=== PATIENT | female | born 1950 | race Caucasian/White ===

== ENCOUNTER 2020-01-16 12:25 | Outpatient (CLI) | payer MEDICARE, SELFPAY ==
--- NOTE | 2020-01-16 12:31 | ECHO_ITS ---
Patient Info Name: Lian Marquez Age: 69 years : 1950 Gender: Female Ht: 63 in Wt: 123 lbs BSA: 1.58 m2 HR: 77 bpm BP: 135 / 48 mmHg Heart Rhythm: Sinus Rhythm Technical Quality: Excellent Exam Date: 01/16/2020 1:33 PM Exam Location: [facility] Patient Status: Outpatient Admit Date: 01/16/2020 Staff Ordering Physician: Chioma Noel NP Log Sawyer: Nelly Coburn RDCS Attending Provider: Chioma Noel NP Referring Physician: Bert SINGH; Exam Type: CA echo doppler color flow Study Info Indications R01.1 - Cardiac murmur, unspecified Complete two-dimensional, color flow and Doppler transthoracic echocardiogram is performed. Strain analysis performed. History/Risk Factors Hypertension: No Dyslipidemia: No Congenital Heart Disease (CHD): No Peripheral Arterial Disease (PAD): No Myocardial Infarction (MO): No Chronic Lung Disease: No Obesity: No Renal Disease: No Coronary Artery Disease (CAD) No Congestive Heart Failure (CHF): No Cardiomyopathy/LV Systolic Dysfunction: No Diabetes Mellitus: No COPD: On Meds Tobacco Use: Former Cerebrovascular Disease: No Deep Vein Thrombosis (DVT): None Dialysis: None Frailty Scale (CSHA): 2: Well Cardiac Arrest: No Summary 1. Complete two-dimensional, color flow and Doppler transthoracic echocardiogram is performed. 2. Left ventricular chamber dimension is normal. 3. Left ventricular systolic function is normal, estimated at 65-70%. 4. The left ventricular diastolic function is normal. 5. E/e' 8 is minimally elevated. 6. Global longitudinal strain is normal at -21.2%. 7. Left atrial chamber dimension is mildly enlarged. 8. The mitral valve has moderate posterior prolapse. 9. There is moderate mitral valve regurgitation that is eccentric and anteriorly directed jet. Eccentric jet can underestimate severity of regurgitation. 10. There is trace tricuspid valve regurgitation. 11. No pulmonary hypertension, estimated pulmonary arterial systolic pressure is 36 mmHg. Left Ventricle E/e' 8 is minimally elevated. Global longitudinal strain is normal at -21.2%. Left ventricular chamber dimension is normal. Left ventricular systolic function is normal, estimated at 65-70%. The left ventricular diastolic function is normal. Right Ventricle Right ventricular chamber dimension is normal. Right ventricular systolic function is normal. Left Atria Left atrial chamber dimension is mildly enlarged. Right Atria Right atrial chamber dimension is normal. Aortic Valve The aortic valve is trileaflet. There is no aortic valve stenosis. There is no aortic valve regurgitation. Pulmonic Valve There is no pulmonic regurgitation. Mitral Valve The mitral valve has moderate posterior prolapse. There is moderate mitral valve regurgitation that is eccentric and anteriorly directed jet. Eccentric jet can underestimate severity of regurgitation. There is no mitral valve stenosis. Tricuspid Valve There is trace tricuspid valve regurgitation. No pulmonary hypertension, estimated pulmonary arterial systolic pressure is 36 mmHg. Pericardium/Pleural There is no pericardial effusion. Inferior Vena Cava Normal inferior vena cava with >50% collapse upon inspiration consistent with normal right atrial pressure, 5 mmHg. Aorta The aortic root size at the sinus of Valsalva is normal. Lef
== END 2020-01-16 12:26 | disposition home or self-care (01) ==
LOC: CHSIMG 12:28
PROVIDERS: PCP Nurse Practitioner Family; Visit Provider Nurse Practitioner Family
DX: R01.1 Cardiac murmur, unspecified (principal); I34.1 Nonrheumatic mitral (valve) prolapse; I34.0 Nonrheumatic mitral (valve) insufficiency
CPT/HCPCS: 93306

== ENCOUNTER 2021-01-09 11:46 | Outpatient (CLI) | payer MEDICARE, SELFPAY ==
--- NOTE | ~2021-01-09 | MM_ITS ---
EXAMINATION: MM screening ramón BI w abdulkadir HISTORY: Screening mammogram TECHNIQUE: Craniocaudal and mediolateral oblique 3-D tomosynthesis images were obtained and synthetic 2-D images were generated. CAD analysis was submitted and interpreted. COMPARISON: 12/04/2018, 02/02/2017, 07/17/2014 bilateral screening mammogram examinations BREAST PARENCHYMAL COMPOSITION: The breasts are heterogeneously dense, which may obscure small masses . FINDINGS: There is no evidence of suspicious mass, calcification, or architectural distortion to sugg est malignancy in either breast. There has been no suspicious interval change. IMPRESSION: 1. No mammographic evidence of malignancy. 2. Recommend routine screening mammography in one year. BI-RADS Category 1: Negative Reviewed, dictated and finalized at location A.
== END 2021-01-09 11:47 | disposition home or self-care (01) ==
LOC: CHSIMG 11:48
PROVIDERS: PCP Nurse Practitioner Family; Visit Provider Nurse Practitioner Family
DX: Z12.31 Encounter for screening mammogram for malignant neoplasm of breast (principal)
CPT/HCPCS: 77063; 77067

== ENCOUNTER 2021-04-20 08:42 | Outpatient (CLI) | payer MEDICARE, SELFPAY ==
[2021-04-20 10:50] LABS: Alanine Aminotransferase 18 U/L (14-59); Albumin Level 4.1 g/dL (3.4-5.0); Alkaline Phosphatase 64 U/L (46-116); Anion Gap 9 mmol/L (8-16); Aspartate Amino Transferase 13 U/L (15-37); Bilirubin,Total 0.8 mg/dL (0.00-1.00); Blood Urea Nitrogen 11 mg/dL (7-18); Calcium 8.8 mg/dL (8.5-10.1); Carbon Dioxide 30 mmol/L (21-32); Chloride 101 mmol/L (98-108); Cholesterol 237 mg/dL (0-200); Estimated Glomerular Filt Rate > 60; Glucose 91 mg/dL (70-99); HDL Direct 115 mg/dL (40-60); LDL Cholesterol Calculated 111 mg/dL (<130); Osmolality Calculated 289 mOsm/kg (285-295); Potassium 3.8 mmol/L (3.5-5.1); Sodium 140 mmol/L (136-145); Triglycerides 57 mg/dL (0-150)
== END 2021-04-20 08:43 | disposition home or self-care (01) ==
LOC: CHSLAB 08:48
PROVIDERS: PCP Nurse Practitioner Family; Visit Provider Internal Medicine Cardiovascular Disease
DX: I34.1 Nonrheumatic mitral (valve) prolapse (principal); I10 Essential (primary) hypertension
CPT/HCPCS: 36415; 80053; 80061

== ENCOUNTER 2022-01-25 14:18 | Outpatient (CLI) | payer MEDICARE, SELFPAY ==
--- NOTE | 2022-01-25 14:26 | ECHO_ITS ---
Patient Info Name: Lian Marquez Age: 71 years : 1950 Gender: Female Ht: 63 in Wt: 123 lbs BSA: 1.58 m2 HR: 79 bpm BP: 154 / 76 mmHg Heart Rhythm: Sinus Rhythm Technical Quality: Fair Exam Date: 01/25/2022 3:14 PM Exam Location: [facility] Patient Status: Outpatient Admit Date: 01/25/2022 Staff Ordering Physician: Tk Arnold DO Ingredient Mixer: Isabela Dewey RDCS Attending Provider: Tk Arnold DO Referring Physician: Clayton SANTOYO; Exam Type: CA echo doppler color flow Study Info Indications - NONRHEUMATIC MITRAL (VALVE) PROLAPSE Complete two-dimensional, color flow and Doppler transthoracic echocardiogram is performed. History/Risk Factors Hypertension: No Dyslipidemia: No Congenital Heart Disease (CHD): No Peripheral Arterial Disease (PAD): No Myocardial Infarction (AL): No Chronic Lung Disease: No Obesity: No Renal Disease: No Coronary Artery Disease (CAD) No Congestive Heart Failure (CHF): No Cardiomyopathy/LV Systolic Dysfunction: No Diabetes Mellitus: No COPD: On Meds Tobacco Use: Former Cerebrovascular Disease: No Deep Vein Thrombosis (DVT): None Dialysis: None Frailty Scale (CSHA): 2: Well Cardiac Arrest: No Summary 1. Complete two-dimensional, color flow and Doppler transthoracic echocardiogram is performed. 2. Left ventricular chamber dimension is normal. 3. Left ventricular systolic function is normal, estimated at 65-70%. 4. The left ventricular diastolic function is grade III diastolic dysfunction. 5. E/e' 52 is significantly elevated. 6. Left atrial chamber dimension is severely enlarged. 7. Right atrial chamber dimension is mildly enlarged. 8. There is mild aortic valve sclerosis. 9. There is trace aortic valve regurgitation. 10. The mitral valve has moderately thickened leaflets, moderately calcified annulus and severe posterior prolapse. 11. There is severe eccentric mitral valve regurgitation. 12. There is moderate tricuspid valve regurgitation. 13. Severe pulmonary hypertension, estimated pulmonary arterial systolic pressure is 66 mmHg. 14. Dilated inferior vena cava with >50% collapse upon inspiration consistent with elevated right atrial pressure, 10 mmHg. Left Ventricle E/e' 52 is significantly elevated. Left ventricular chamber dimension is normal. Left ventricular systolic function is normal, estimated at 65-70%. The left ventricular diastolic function is grade III diastolic dysfunction. Right Ventricle Right ventricular systolic function is normal and with normal TAPSE 1.7 cm. Right ventricular chamber dimension is normal. Left Atria Left atrial chamber dimension is severely enlarged. Right Atria Right atrial chamber dimension is mildly enlarged. Aortic Valve The aortic valve is trileaflet. There is mild aortic valve sclerosis. There is no aortic valve stenosis. There is trace aortic valve regurgitation. Pulmonic Valve There is no pulmonic regurgitation. Mitral Valve The mitral valve has moderately thickened leaflets, moderately calcified annulus and severe posterior prolapse. There is no mitral valve stenosis. There is severe eccentric mitral valve regurgitation. Tricuspid Valve There is moderate tricuspid valve regurgitation. Severe pulmonary hypertension, estimated pulmonary arterial systolic pressure is 66 mmHg. Pericardium/Pleural There is no pericardial effusion. Inferior Vena Cava
== END 2022-01-25 14:19 | disposition home or self-care (01) ==
LOC: CHSIMG 14:21
PROVIDERS: PCP Nurse Practitioner Family; Visit Provider Internal Medicine Cardiovascular Disease
DX: I34.1 Nonrheumatic mitral (valve) prolapse (principal)
CPT/HCPCS: 93306

== ENCOUNTER 2022-09-02 23:54 | Emergency (ER) | payer MEDICARE, SELFPAY ==
--- NOTE | ~2022-09-02 | XR_ITS ---
Portable chest x-ray Comparison: 05/29/2015 Clinical History: SVT Findings: There is minimal peripheral haziness in the lungs. Probable minimal pleural effusions. Ca rdiomediastinal silhouette is stable. Stable extensive thoracic spinal fixation hardware. Stable marisabel droid lesion at the proximal left humerus, likely large enchondroma. Impression: Probable mild pulmonary edema with minimal pleural effusions. Correlate clinically for infection. 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 Stable spinal fixation hardware. Reviewed, dictated and finalized at location . Impression: Probable mild pulmonary edema with minimal pleural effusions. Correlate clinica lly for infection. 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 Stable spinal fixation hardware.
--- NOTE | ~2022-09-02 | CT_ITS ---
Clinical Indication: Shortness of breath CT Scan of the Chest with Contrast: Technique: Contiguous sections were acquired throughout the chest after intravenous administration of 100 cc of Omnipaque 350. Dose reduction technique was used on this scan by utilizing automated expos ure control and iterative reconstruction technique. The dose-length product (DLP) was 186.45 mGy-cm. Findings: There is streak artifact related to extensive thoracic spine fixation hardware. There is no evidence of any significant mediastinal, hilar or axillary lymphadenopathy. There is no f illing defect in the pulmonary arterial tree to suggest pulmonary embolus. There is no evidence of ao rtic dissection or aneurysm. There is no evidence of pleural or pericardial effusion. There are several scattered small, subcentimeter nodular opacities in the lungs (for example right up per lobe image 41, left lower lobe image 70), with additional scattered peripheral areas of irregular consolidation. There is suggestion of minimal patchy groundglass opacity throughout the lungs. There is probable atelectasis at the posterior left lung base. Images through the upper abdomen reveal no abnormalities. Compression fracture of T7 present. Impression: No evidence of pulmonary embolus, aortic dissection, or aortic aneurysm. Scattered peripheral areas of patchy consolidation and subcentimeter nodularity, as noted above. Find ings suggest infectious/inflammatory process. Small neoplastic nodules cannot be completely excluded. Consider follow-up exam after interval therapy. Minimal patchy groundglass opacity could reflect minimal superimposed pulmonary edema, bronchiolitis, asthma, hypersensitivity pneumonitis. Correlate clinically. T7 compression fracture with extensive thoracic spine fixation hardware. Reviewed, dictated and finalized at [facility]. Impression: No evidence of pulmonary embolus, aortic dissection, or aortic aneurysm. Scattered peripheral areas of patchy consolidation and subcentimeter nodularity , as noted above. Findings suggest infectious/inflammatory process. Small neopl astic nodules cannot be completely excluded. Consider follow-up exam after inte rval therapy. Minimal patchy groundglass opacity could reflect minimal superimposed pulmonary edema, bronchiolitis, asthma, hypersensitivity pneumonitis. Correlate clinical ly. T7 compression fracture with extensive thoracic spine fixation hardware.
[2022-09-02 23:54] VITALS: BP 85/59; PULSE 205; RESP 28; TEMP 36.8; O2SAT 99
[2022-09-03] VITALS (32 sets, daily range): BP systolic 87–111; BP diastolic 33–74; PULSE 87–152; RESP 16–35; TEMP 37; O2SAT 94–100
--- NOTE | 2022-09-03 00:01 | ECG_ITS ---
Measurements Intervals [place] Rate: 95 P: 39 FL: 146 QRS: 0 QRSD: 89 T: 30 QT: 351 QTc: 442 Interpretive Statements SINUS RHYTHM WITH OCCASIONAL SUPRAVENTRICULAR PREMATURE COMPLEXES NONSPECIFIC ST AND T CHANGES ABNORMAL ECG COMPARED TO ECG 09/03/2022 00:01:23 SINUS RHYTHM NOW REPLACES SVT Electronically Signed On 09-03-2022 8:03:28 CDT by Roe White M.D.
[2022-09-03] MEDS: SODIUM CHLORIDE 0.9% IV 500 ML 999 ML IV CONT (00:04)
[2022-09-03] MEDS: MIDAZOLAM HCL (*CRX) 2 MG/2 ML VIAL 1 MG IV PUSH ×2 (00:05→00:09)
--- NOTE | 2022-09-03 00:15 | PC.NURSE ---
Pt cardioverted x 2 with 50 J pt tolerated well. Pt now in NSR with occasional ectopy noted. Pt reports feeling much better. Skin now cool, dry, and pink. Repeat ECG obtained. Portable Chest X-ray completed. Repeat labs drawn and sent.
[2022-09-03 00:19] LABS: INR 1.1; Partial Thromboplastin Time 23.1 SEC (23.90-30.70); Prothrombin Time 11.5 Seconds (9.50-12.10)
[2022-09-03 00:26] LABS: Basophils Absolute Auto 0.02 K/mm3 (0.00-0.10); Basophils Percent Auto 0.2 % (0.0-1.0); Eosinophils Absolute Auto 0.27 K/mm3 (0.02-0.50); Eosinophils Percent Auto 2.2 % (1.0-6.0); Hematocrit 28.8 % (35.0-42.0); Hemoglobin 8.2 g/dL (11.7-13.8); Immature Granulocyte Absolute 0.13 K/mm3 (0.00-0.00); Immature Granulocyte Percent A 1.1 % (0.0-0.0); Lymphocytes Absolute Auto 0.82 K/mm3 (1.10-4.50); Lymphocytes Percent Auto 6.8 % (18.0-42.0); Mean Corpuscular HGB Conc 28.5 g/dL (32.0-36.0); Mean Corpuscular Hemoglobin 31.4 pg (27.0-31.0); Mean Corpuscular Volume 110.3 fL (78.0-102.0); Mean Platelet Volume 9.1 fl (9.2-11.8); Monocytes Absolute Auto 0.81 K/mm3 (0.10-0.90); Monocytes Percent Auto 6.7 % (2.0-11.0); Platelet Count Result 347 K/mm3 (150-420); Red Blood Count 2.61 M/mm3 (4.20-5.40); Red Cell Distribution Width 16.6 % (11.6-14.4)
[2022-09-03 00:26] LABS: D Dimer 2.52 mg/L (0.19-0.50)
--- NOTE | 2022-09-03 00:29 | ECG_ITS ---
Measurements Intervals [place] Rate: 204 P: TX: 0 QRS: -17 QRSD: 77 T: 171 QT: 213 QTc: 393 Interpretive Statements SUPRAVENTRICULAR TACHYCARDIA NONSPECIFIC ST & T-WAVE ABNORMALITY ABNORMAL ECG CRITICAL TEST RESULT NO PREVIOUS ECG AVAILABLE FOR COMPARISON Electronically Signed On 09-03-2022 8:02:48 CDT by Roe White M.D.
[2022-09-03 00:30] LABS: Alanine Aminotransferase 56 U/L (14-59); Albumin Level 3.1 g/dL (3.4-5.0); Alkaline Phosphatase 150 U/L (46-116); Anion Gap 7 mmol/L (8-16); Aspartate Amino Transferase 108 U/L (15-37); Bilirubin,Total 0.7 mg/dL (0.00-1.00); Blood Urea Nitrogen 20 mg/dL (7-18); Calcium 8.3 mg/dL (8.5-10.1); Carbon Dioxide 30 mmol/L (21-32); Chloride 103 mmol/L (98-108); Estimated Glomerular Filt Rate > 60; Glucose 159 mg/dL (70-99); Lipase 70 U/L (16-77); NT Pro B Type Natriuretic Pept 2124 pg/mL (0-125); Osmolality Calculated 295 mOsm/kg (285-295); Potassium 4.2 mmol/L (3.5-5.1); Sodium 140 mmol/L (136-145)
--- NOTE | 2022-09-03 00:48 | ED.SOB ---
HPI - SOB/Dyspnea General Chief Complaint: Arrhythmia/Palpitations Stated Complaint: Cardio Converted Time Seen by Provider: 09/02/22 23:56 Source: patient and EMS Mode of arrival: EMS Limitations: no limitations History of Present Illness HPI Narrative: this is a 72-year-old female that presents via EMS with some tachycardia heart rate over 200 with shortness of breath hypotensive, patient denies having any chest pain initially blood pressure was 88 systolic with a heart rate of 206. Denied any chest pain did have some shortness of breath with no nausea vomiting no abdominal pain no dysuria no fever chills. Patient recently had mitral valve replacement surgery 2 weeks ago is currently on Eliquis, also has a history of hypertension and is on metoprolol and is on Lasix. MD elicited complaint: shortness of breath Onset (ago): hour(s) Context: recent illness Timing: constant Severity: severe Exacerbating factors: exertion Related Data Home Medications Medication Instructions Recorded Confirmed apixaban 5 mg tablet 5 mg PO BID 08/31/22 09/03/22 aspirin 81 mg tablet,delayed 81 mg PO DAILY 08/31/22 09/03/22 release (Adult Aspirin Regimen) furosemide 40 mg tablet 40 mg PO QAM 08/31/22 09/03/22 metoprolol succinate 25 mg 12.5 mg PO DAILY 08/31/22 09/03/22 tablet,extended release 24 hr potassium chloride 20 mEq 20 meq PO DAILY 08/31/22 09/03/22 tablet,extended release Allergies Allergy/AdvReac Type Severity Reaction Status Date / Time No Known Allergies Allergy Verified 09/01/22 08:36 Review of Systems Review of Systems: All systems reviewed & are unremarkable except as noted in HPI and below PMFSH Past Medical History Medical History COPD (chronic obstructive pulmonary disease) Insomnia Surgical History Surgical History History of back surgery 1999 Hx of hysterectomy 1985 S/P mitral valve repair 08/17/[address] Velez at [place] Social History Social History Smoking packs per day: 0 Smoking cigarettes per day: 0.0 Years smoked: 40 Smoking pack-years: 0.00 Smoking status: Former smoker Tobacco type: cigarettes Smoking end date: 12/12/18 Lack of Transportation: No Lack of Food: Never True Current Housing: I Have Housing Concerned About Future Housing: No Difficulty Paying Gas/Electric Bills: No Difficulty Paying for Meds: No Currently Unemployed: No Education: Associate Degree Difficulty w/ Childcare or Family Care: No Exam Const: General: ill appearing Nutritional Appearance: thin Orientation/consciousness: patient oriented x3 Limitations: no limitations HENMT: Head: normal to inspection Eyes: Conjunctivae: conjunctivae normal Pupils: Equal, round and reactive pupils present EOM: EOMs intact bilaterally Neck: Neck: normal visual inspection and no lymphadenopathy Chest: Chest palpation & inspection: normal inspection of the chest Resp: Effort & Inspection: normal respiratory effort Auscultation: clear to auscultation bilaterally Cardio: Rate: tachycardic Rhythm: regular rhythm GI: GI Palp: Yes Soft to palpation Auscultation: normal bowel sounds Skin: General skin exam: normal color Rashes: no rashes Wounds: no wounds Neuro: General: patient oriented x3 and moves all extremities Speech: normal speech Extrem: General: normal to inspection Psych: Mental Status: mental status grossly normal Affect: normal affect Course Course Emergency Course: Patient with a heart rate of over 200 in SVT and unstable, D-dimer is elevated as well as troponins mildly elevated will have a repeat troponin. Patient was prepared for synchronized cardioversion and was given 2mg IV Versed and initially received 50 joules of synchronized cardioversion which decreased heart rate from 205 to 1
[2022-09-03 00:54] LABS: Troponin I 75.1 ng/L (0.00-60.4)
--- NOTE | 2022-09-03 01:08 | PC.NURSE ---
HR now returning to 120-140 irregular narrow complex tachycardia with occasional PVC noted. ERP aware.
[2022-09-03] MEDS: dilTIAZem HCl INJ 25 MG/5 ML VIAL 5 MG IV PUSH (01:20)
[2022-09-03] MEDS: dilTIAZem 100 MG/100 ML 100 MG/100 ML BAG IV CONT (02:04)
--- NOTE | 2022-09-03 02:10 | PC.NURSE ---
Pt resting without complaints at this time. Skin warm, dry, pink. Diltiazem infusing via pump. Awaiting return call from [facility]. Family and pt updated. Call light in reach. Side rails up x2.
--- NOTE | 2022-09-03 02:36 | PC.NURSE ---
SBP 88 ERP aware orders diltiazem drip stopped at this time. Diltiazem infusion stopped as ordered.
--- NOTE | 2022-09-03 02:56 | PC.NURSE ---
Spoke with Juan at [facility] access line. Awaiting bed assignment at this time. Family and pt updated.
--- NOTE | 2022-09-03 03:00 | PC.NURSE ---
[facility] Access line called back at this time with updated vitals BP now 102/79 MAP 80
[2022-09-03 03:01] LABS: Troponin I 184.2 ng/L (0.00-60.4)
--- NOTE | 2022-09-03 03:30 | PC.NURSE ---
ERP aware of SPB 88. Per ERP will start fluids at rate of 250 ml/hr for 500 mL.
[2022-09-03] MEDS: SODIUM CHLORIDE 0.9% IV 500 ML 250 ML IV CONT (03:32)
--- NOTE | 2022-09-03 05:23 | PC.NURSE ---
Report to EFREN Granados at [address] Bed number [phone] room number [id number].
--- NOTE | 2022-09-03 05:42 | PC.NURSE ---
Report to [facility]. Pt converted to NSR rate of 87. [facility] contacted and given ETA and updated that pt converted.
== END 2022-09-03 05:51 | disposition short-term general hospital (02) ==
PROVIDERS: Emergency Provider Emergency Medicine; PCP Family Medicine
DX: I47.1 Supraventricular tachycardia (principal); R06.02 Shortness of breath; J44.9 Chronic obstructive pulmonary disease, unspecified; Z79.01 Long term (current) use of anticoagulants; Z79.82 Long term (current) use of aspirin; Z87.891 Personal history of nicotine dependence
CPT/HCPCS: 36415; 71045; 71275; 80053; 83690; 83880; 84484; 85025; 85380; 85610; 85730; 93005; 96365; 96366; 96375; 96376; 99285; J2250; J7040; Q9967

== ENCOUNTER 2022-09-17 08:51 | Observation (INO) | payer MEDICARE, SELFPAY ==
[2022-09-17] VITALS (26 sets, daily range): BP systolic 103–126; BP diastolic 56–78; PULSE 84–100; RESP 14–25; TEMP 36.2–37; O2SAT 91–100; BMI 20.9
--- NOTE | ~2022-09-17 | XR_ITS ---
EXAMINATION: XR chest 2V DATE: 09/17/2022 09:21 INDICATION: Shortness of breath. TECHNIQUE: Frontal and lateral views of the chest were obtained. COMPARISON: Chest single view 09/03/2022, chest CT 09/03/2022 FINDINGS: There is a diffuse interstitial pattern in the lungs. There are airspace opacities in the m id and lower lung zones. There are small pleural effusions. No pneumothorax. Cardiomegaly is noted. T here are changes of median sternotomy. There are fixation rods in thoracic spine. There is chronic he ight loss of multiple vertebral bodies. IMPRESSION: 1. Worsened diffuse lung disease, likely mild pulmonary edema and superimposed atelectasis/scarring v ersus pneumonia. 2. Small pleural effusions. 3. Cardiomegaly. Reviewed, dictated and finalized at location A. IMPRESSION: 1. Worsened diffuse lung disease, likely mild pulmonary edema and superimposed atelectasis/scarring versus pneumonia. 2. Small pleural effusions. 3. Cardiomegaly.
--- NOTE | 2022-09-17 08:54 | ECG_ITS ---
Measurements Intervals [place] Rate: 96 P: 17 ND: 148 QRS: -3 QRSD: 90 T: 32 QT: 335 QTc: 425 Interpretive Statements SINUS RHYTHM ATRIAL PREMATURE COMPLEX NONSPECIFIC T-WAVE ABNORMALITY- DIFFUSE LEADS BASELINE WANDER- I, II, AVR, AVL, AVF, V3-V6 BORDERLINE ECG COMPARED TO ECG 09/03/2022 00:15:58 NO SIGNIFICANT CHANGES Electronically Signed On 09-17-2022 9:34:37 CDT by Tk Arnold D.O.
--- NOTE | 2022-09-17 09:04 | ED.SOB ---
HPI - SOB/Dyspnea General Chief Complaint: Shortness of Breath/Dyspnea Stated Complaint: shortness of breath/s/p mitral valve repair Time Seen by Provider: 09/17/22 09:04 Source: patient and RN notes reviewed Mode of arrival: ambulatory Limitations: no limitations History of Present Illness MD elicited complaint: shortness of breath Pertinent past history: COPD Onset (ago): day(s) (2) Severity: moderate Exacerbating factors: exertion Relieving factors: nothing Known history of: COPD Associated symptoms: denies other symptoms Treatment prior to arrival: none Related Data Home Medications Medication Instructions Recorded Confirmed apixaban 5 mg tablet 5 mg PO BID 08/31/22 09/17/22 aspirin 81 mg tablet,delayed 81 mg PO DAILY 08/31/22 09/17/22 release (Adult Aspirin Regimen) furosemide 40 mg tablet 40 mg PO QAM 08/31/22 09/17/22 metoprolol succinate 25 mg 12.5 mg PO DAILY 08/31/22 09/17/22 tablet,extended release 24 hr potassium chloride 20 mEq 20 meq PO DAILY 08/31/22 09/17/22 tablet,extended release Allergies Allergy/AdvReac Type Severity Reaction Status Date / Time No Known Allergies Allergy Verified 09/01/22 08:36 Review of Systems Review of Systems: All systems reviewed & are unremarkable except as noted in HPI and below Constitutional: Constitutional: Denies chills and Denies fever(s) Cardiovascular: Cardiovascular: Denies chest pain and Denies rapid heart rate Respiratory: Respiratory: Reports as per HPI Gastrointestinal: Gastrointestinal: Denies nausea and Denies vomiting [facility] Past Medical History Medical History COPD (chronic obstructive pulmonary disease) Insomnia Surgical History Surgical History History of back surgery 2000 Hx of hysterectomy 1985 S/P mitral valve repair 08/17/[address] Velez at [place] Social History Social History Smoking packs per day: 0 Smoking cigarettes per day: 0.0 Years smoked: 40 Smoking pack-years: 0.00 Smoking status: Former smoker Tobacco type: cigarettes Smoking end date: 12/12/18 Alcohol intake: unknown Substance use: never Substance use type: does not use Lack of Transportation: No Lack of Food: Never True Current Housing: I Have Housing Concerned About Future Housing: No Difficulty Paying Gas/Electric Bills: No Difficulty Paying for Meds: No Currently Unemployed: No Education: Bachelor's Degree Difficulty w/ Childcare or Family Care: No Spiritual care concerns: No Exam Const: General: healthy appearing, no acute distress and alert Nutritional Appearance: well nourished Orientation/consciousness: patient oriented x3 Limitations: no limitations HENMT: Head: normal to inspection Ears: external ears normal Face/Nose/Sinus: Normal external nose present Face and sinus: normal facial exam Mouth: Yes moist mucous membranes Eyes: Conjunctivae: conjunctivae normal Pupils: Equal, round and reactive pupils present EOM: EOMs intact bilaterally Neck: Neck: normal visual inspection Resp: Effort & Inspection: normal respiratory effort Auscultation: rhonchi throughout Cardio: Rate: regular rate Rhythm: abnormal rhythm with ectopic beats Heart sounds: Murmur heart sound present diastolic holo and III/ GI: GI Palp: Yes Soft to palpation and No Tenderness to palpation present (GI) Auscultation: normal bowel sounds Back/Spine/Pelvis: Cervical Spine: cervical ROM normal Thoracic/Lumbar Spine: thoraco-lumbar ROM normal Skin: General skin exam: normal color Rashes: no rashes Neuro: General: patient oriented x3, moves all extremities, no focal motor deficits and CN's II-XI intact bilaterally Speech: normal speech Gait exam (Neuro): Normal gait present Extrem: General: normal to inspection and no clubbing, cyanosis or edema Psych: Men
[2022-09-17] MEDS: IPRATROPIUM 0.5 MG/ALBUTEROL SULFATE 2.5 MG AMPUL.NEB 3 ML INHALATION (09:22)
[2022-09-17 09:43] LABS: Hematocrit 24.4 % (35.0-42.0); Hemoglobin 7.5 g/dL (11.7-13.8); Mean Corpuscular HGB Conc 30.7 g/dL (32.0-36.0); Mean Corpuscular Hemoglobin 31.6 pg (27.0-31.0); Mean Platelet Volume 9.2 fl (9.2-11.8); Platelet Count Result 270 K/mm3 (150-420); Red Blood Count 2.37 M/mm3 (4.20-5.40); Red Cell Distribution Width 16.9 % (11.6-14.4); White Blood Count 6.5 K/mm3 (4.8-10.8)
[2022-09-17 09:44] LABS: Basophils Absolute Auto 0.03 K/mm3 (0.00-0.10); Basophils Percent Auto 0.5 % (0.0-1.0); Eosinophils Absolute Auto 0.16 K/mm3 (0.02-0.50); Eosinophils Percent Auto 2.4 % (1.0-6.0); Immature Granulocyte Absolute 0.05 K/mm3 (0.00-0.00); Immature Granulocyte Percent A 0.8 % (0.0-0.0); Lymphocytes Percent Auto 12.2 % (18.0-42.0); Monocytes Absolute Auto 0.54 K/mm3 (0.10-0.90); Monocytes Percent Auto 8.3 % (2.0-11.0); Neutrophils Percent Auto 75.8 % (50.0-70.0)
[2022-09-17 09:59] LABS: Partial Thromboplastin Time 27.7 SEC (23.90-30.70); Prothrombin Time 10.9 Seconds (9.50-12.10)
[2022-09-17 10:07] LABS: Alanine Aminotransferase 23 U/L (14-59); Albumin Level 3.4 g/dL (3.4-5.0); Alkaline Phosphatase 90 U/L (46-116); Anion Gap 8 mmol/L (8-16); Aspartate Amino Transferase 56 U/L (15-37); Bilirubin,Total 1.4 mg/dL (0.00-1.00); Blood Urea Nitrogen 17 mg/dL (7-18); CRP 16.9 mg/dL (0.0-0.9); Calcium 8.7 mg/dL (8.5-10.1); Carbon Dioxide 30 mmol/L (21-32); Chloride 105 mmol/L (98-108); Estimated CRCL calculation 69 ml/min; Estimated Glomerular Filt Rate > 60; Glucose 103 mg/dL (70-99); Magnesium 2.2 mg/dL (1.8-2.4); NT Pro B Type Natriuretic Pept 3455 pg/mL (0-125); Osmolality Calculated 297 mOsm/kg (285-295); Potassium 3.6 mmol/L (3.5-5.1); Sodium 143 mmol/L (136-145); Total Protein 6.8 g/dL (6.4-8.2); Troponin I 16.9 ng/L (0.00-60.4)
--- NOTE | 2022-09-17 10:51 | PC.NURSE ---
hospitalist Araceli here and in speaking with pt.
--- NOTE | 2022-09-17 11:20 | PM.IMHP ---
H&P: HPI History of Present Illness Date/Time: 09/17/22 11:20 Chief Complaint: Shortness of breath Narrative: Ms. Bellamy is a 72 year old female who presented to emergency room with complaints of increasing shortness of breath. Patient states she does have chronic shortness of breath, but over the last 3 days she has noticed increasing shortness of breath and at time she has been short of breath rest. Patient states she has been taking all medications at home without any difficulty. Patient states there was a recent decrease in her oral Lasix dose from 40 mg b.i.d. to 40 mg daily. Upon evaluation emergency room patient was noted to have a hemoglobin of 7.5 with hematocrit of 24.4 and elevation in her BNP with a chest x-ray consistent of pulmonary vascular congestion. Patient denies any chest discomfort, orthopnea, or PND. Patient denies any lightheadedness, dizziness, syncopal, or near syncopal episodes. Patient denies any obvious sources of bleeding such as blood in her stool, blood in her urine, or COVID this nose bleeds. Patient did undergo mitral valve repair at [facility] approximately 1 month ago. Postoperatively patient has required transfusion secondary to anemia. Patient had a known history of severe mitral regurgitation and underwent mitral valve repair, surgical pulmonary vein isolation and left atrial appendage ligation on 08/17/2022 at [facility]. Postoperatively patient did have an episode of atrial fibrillation with rapid ventricular response and tachy-linda syndrome. Electrophysiology was consulted and patient was placed on a beta-evelia successfully without needing any type of pacing. On 09/03/2022 patient was taking a shower and she felt like her heart was racing so she called 911 was brought to the emergency room. Patient was noted to be in SVT with heart rate over 200 and blood pressure was low. Patient then had synchronized cardioversion x2 and patient was noted to be in atrial fibrillation with rapid ventricular response and then was given Cardizem bolus and a drip was started and patient had further hypotension. Patient then received a normal saline bolus and she was transported to [facility] for further treatment. At that time patient was noted to have a hemoglobin of 6.7 with hematocrit of 20.9 and she was given 1 unit of packed red blood cells with an appropriate response in her laboratories and her hemoglobin was 9.0 with hematocrit 27.2. At that time was also noted patient had no active sites of bleeding and she was to continue her aspirin and Eliquis. At discharge from [facility] patient was told to take Lasix 40 mg p.o. b.i.d. x1 week and then to decrease it to daily. Patient did decrease her Lasix and since that time she has decrease the dose she has noted increasing shortness of breath. Review of Systems Review of Systems: A 12 point review of systems was completed with patient all pertinent positive and negative per HPI the remainder are unremarkable. FOR[facility]LY [facility] Past Medical History Medical History (Updated 09/17/22 @ 13:45 by Araceli Mckenna APRN) Anemia Atrial fibrillation COPD (chronic obstructive pulmonary disease) Insomnia Mitral regurgitation Surgical History Surgical History History of back surgery 2000 Hx of hysterectomy 1984 S/P mitral valve repair 08/17/[address] Velez at [place] Social History Social History Smoking packs per day: 1 Smoking cigarettes per day: 20.0 Years smoked: 40 Smoking pack-years: 40.00 Smoking status: Former smoker Tobacco type: cigarettes Second hand tobacco smoke exposure: No Smoking end date: 12/12/18 Alcohol intake: unknown Substance use: never Substance use type: does not use Lack of Transportation: No Lack of Food: Never True Current Housing: I Have Housing Concerned
[2022-09-17 11:58] LABS: Folic Acid 16.2 ng/mL (8.6->20); Vitamin B12 338 pg/mL (193-986)
--- NOTE | 2022-09-17 12:56 | PC.NURSE ---
Pt admitted to room 208 from the ED. She is A/O x 3. Steady when walking, good balance, SOB when ambulating. Visiting hours, call system , TV control and nurse call light.
[2022-09-17 14:29] LABS: Immature Reticulocyte Fraction 27.8 % (2.0-16.52); Reticulocyte Hemoglobin Conten 34.1 pg (28.0-35.0); Reticulocyte Percent 9.65 % (0.50-1.50); Reticulocytes Absolute 0.22 M/mm3 (0.02-0.1)
[2022-09-17 14:30] LABS: Lactate Dehydrogenase 985 U/L (81-234)
[2022-09-17] MEDS: SODIUM CHLORIDE 0.9% IV 250 ML 30 ML IV CONT (14:30)
[2022-09-17] MEDS: FUROSEMIDE INJ 40 MG/4 ML VIAL IV PUSH (18:21)
[2022-09-17 18:46] LABS: Hematocrit 28.1 % (35.0-42.0)
--- NOTE | 2022-09-17 19:05 | PC.NURSE ---
GUSTAVO Franklin/Hospitalist notified of post blood transfusion H&H results.
[2022-09-17] MEDS: APIXABAN 2.5 MG TABLET 5 MG BY MOUTH (20:43)
[2022-09-17] MEDS: ALBUTEROL SULFATE (*SP) INHALER 1 PUFF INHALATION (20:44)
[2022-09-18] MEDS: ALBUTEROL SULFATE (*SP) INHALER 1 PUFF INHALATION (04:01)
[2022-09-18 05:24] LABS: Basophils Absolute Auto 0.05 K/mm3 (0.00-0.10); Basophils Percent Auto 0.7 % (0.0-1.0); Eosinophils Percent Auto 6.6 % (1.0-6.0); Hematocrit 26.8 % (35.0-42.0); Hemoglobin 8.7 g/dL (11.7-13.8); Immature Granulocyte Absolute 0.06 K/mm3 (0.00-0.00); Immature Granulocyte Percent A 0.8 % (0.0-0.0); Lymphocytes Absolute Auto 1.12 K/mm3 (1.10-4.50); Lymphocytes Percent Auto 14.7 % (18.0-42.0); Mean Corpuscular HGB Conc 32.5 g/dL (32.0-36.0); Mean Corpuscular Hemoglobin 31.6 pg (27.0-31.0); Mean Corpuscular Volume 97.5 fL (78.0-102.0); Mean Platelet Volume 9.3 fl (9.2-11.8); Monocytes Absolute Auto 0.77 K/mm3 (0.10-0.90); Monocytes Percent Auto 10.1 % (2.0-11.0); Neutrophils Absolute Auto 5.1 K/mm3 (1.7-7.2); Neutrophils Percent Auto 67.1 % (50.0-70.0); Platelet Count Result 276 K/mm3 (150-420); Red Blood Count 2.75 M/mm3 (4.20-5.40); Red Cell Distribution Width 19.1 % (11.6-14.4); White Blood Count 7.6 K/mm3 (4.8-10.8)
[2022-09-18 05:33] LABS: Anion Gap 5 mmol/L (8-16); Blood Urea Nitrogen 16 mg/dL (7-18); Calcium 8.6 mg/dL (8.5-10.1); Carbon Dioxide 32 mmol/L (21-32); Chloride 104 mmol/L (98-108); Estimated CRCL calculation 68 ml/min; Estimated Glomerular Filt Rate > 60; Glucose 113 mg/dL (70-99); Osmolality Calculated 294 mOsm/kg (285-295); Potassium 3.8 mmol/L (3.5-5.1); Sodium 141 mmol/L (136-145)
[2022-09-18 08:00] VITALS: BP 120/70; PULSE 93; RESP 18; TEMP 36.7; O2SAT 92
[2022-09-18] MEDS: POTASSIUM CHLORIDE 10 MEQ ER TABLET PO (08:59)
[2022-09-18] MEDS: FUROSEMIDE INJ 40 MG/4 ML VIAL IV PUSH (08:59)
[2022-09-18] MEDS: APIXABAN 2.5 MG TABLET 5 MG BY MOUTH (09:04)
[2022-09-18] MEDS: ASPIRIN 81 MG ENTERIC TABLET PO (09:04)
[2022-09-18] MEDS: FLUTICASONE/UMECLIDIN/VILANTER 100-62.5-25 MCG ELLIPTA 1 PUFF INHALATION (09:04)
[2022-09-18 09:05] VITALS: PULSE 92
[2022-09-18] MEDS: METOPROLOL SUCCINATE EXT REL 12.5 MG TABCR PO (09:05)
--- NOTE | 2022-09-18 10:01 | PM.DS ---
DS: Admitting Diagnosis Discharge Date 09/18/2022 Admitting Diagnosis Shortness of breath DS: Summary Hospital Course Reason for hospitalization: Anemia Hospital Course: Ms. Bellamy is a 72-year-old female who presented emergency room with complaints of increasing shortness of breath over the last 3 days. Patient states that she also had noticed some pedal edema that had increased over the last day to 2 days. Patient states she had been taking all home medications without any difficulty, but she had recently had a decrease in her Lasix from 40 mg b.i.d. to 40 mg daily. Upon evaluation emergency room patient was noted to have a hemoglobin of 7.5 and a hematocrit of 24.4 which was a decrease from her previous laboratories. Patient was also noted to have an elevated BNP of 3455. It was also noted that patient had recently been seen in the emergency room at this facility for SVT and underwent cardioversion and then was placed on a Cardizem drip and transferred to [facility] secondary to the fact that is where she had a mitral valve repair approximately 1 month ago. During that hospitalization patient was noted to be anemic and did receive 1 unit of packed red blood cells with appropriate response After evaluation in the emergency room on 09/17/22 it was decided the patient be admitted overnight for transfusion of 1 unit of packed red blood cells and diuresis. Above laboratories were noted, but it was also noted patient had a decreased RBC count, an elevated MCV, and an elevated total bilirubin. With the findings of an elevated MCV a B12 and folate were drawn which were within normal limits. After noting that the B12 and folate were within normal limits a consideration for hemolysis was made. Noting the patient had not been anemic prior to her mitral valve repair and at this point she has required 2 transfusions approximately 1 month after surgery, consideration that the patient's mitral valve repair could be causing hemolysis, which is very rare. A reticulocyte count and LDH were performed. Patient's reticulocyte count was elevated and patient's LDH was 985. Unfortunately, a haptoglobin cannot be performed because this is a send out laboratory and would take greater than 4 days to have results. It was also noted that patient's RDW was elevated and patient is indirect bilirubin was 1.0 with a total bilirubin of 1.3. Unfortunately, LDH and reticulocyte counts are not extremely specific to hemolysis it is the start of a workup for hemolysis and patient can follow up with her surgeon for further recommendations and laboratories. Patient does have an appointment to see her cardiovascular surgeon in 1 week. During hospitalization patient did receive 1 unit of packed red blood cells with appropriate response of her hemoglobin and hematocrit. Patient did receive a dose of IV Lasix after receiving her unit of packed red blood cells. Today patient was noted to have fine crackles with improved air movement to bilateral lung diamond and mild, but improved, pedal edema so patient did receive a 2nd dose of IV Lasix this morning. At this point time patient is doing well and is ready for discharge. Did discuss with patient that she should take Lasix 40 mg p.o. in the a.m. and 20 mg p.o. in the evening until she is seen by her surgeon to make any adjustments. Patient is doing well and is in improved stable condition and ready for discharge and she needs to keep her follow-up with her cardiovascular surgeon. Did discuss with patient depth that if she has to have any increasing shortness of breath she either needs to see her primary care provider for laboratories or return to the emergency room. Patient verbalized understanding. Status at Discharge Cognitive/behavioral status at discharge: Patient is improved and stable condition at this time. Time Spent with Patient Time attestation: Total time spent providing and/or coordinating discharge services: 45 minutes
[2022-09-18 10:31] LABS: Alanine Aminotransferase 21 U/L (14-59); Albumin Level 3.2 g/dL (3.4-5.0); Alkaline Phosphatase 80 U/L (46-116); Aspartate Amino Transferase 52 U/L (15-37); Bilirubin Direct 0.3 mg/dL (0-0.2); Bilirubin,Total 1.3 mg/dL (0.00-1.00); Total Protein 6.8 g/dL (6.4-8.2)
--- NOTE | 2022-09-18 10:35 | PC.NURSE ---
Patient' s IV discontinued on anticipation of discharge. Discharge instructions given to patient and her . Both voiced understanding. Patient left unit in w/c accompanied by typewriter aligner. Personal items sent home with patient. Patient left hospital grounds in privately owned vehicle.
--- NOTE | 2022-09-18 10:40 | PC.NURSE ---
H and P and summary faxed to [facility]. Acknowledgement received.
--- NOTE | 2022-09-20 15:32 | PC.NURSE ---
Pt states she received and understood her discharge instructions. Pt also states everyone was wonderful .
== END 2022-09-18 10:35 | disposition home health service (06) ==
LOC: CHSED 10:47 → CHS2ND 12:49
PROVIDERS: Nurse Practitioner Adult Health; Admitting Provider Internal Medicine; Emergency Provider Emergency Medicine; PCP Family Medicine; Visit Provider Internal Medicine
DX: D64.9 Anemia, unspecified (principal); I50.21 Acute systolic (congestive) heart failure; J44.9 Chronic obstructive pulmonary disease, unspecified; Z79.01 Long term (current) use of anticoagulants; Z87.891 Personal history of nicotine dependence; Z79.82 Long term (current) use of aspirin; Z98.890 Other specified postprocedural states; I48.0 Paroxysmal atrial fibrillation
CPT/HCPCS: 36415; 36430; 71046; 80048; 80053; 80076; 82607; 82746; 83615; 83735; 83880; 84484; 85014; 85018; 85025; 85046; 85610; 85730; 86140; 86850; 86900; 86901; 86920; 93005; 94640; 96361; 96374; 96376; 99285; A9270; G0378; J1940; J7050; P9016

== ENCOUNTER 2022-09-23 11:35 | Outpatient (CLI) | payer MEDICARE, SELFPAY ==
[2022-09-23 11:53] LABS: Basophils Absolute Auto 0.03 K/mm3 (0.00-0.10); Basophils Percent Auto 0.6 % (0.0-1.0); Eosinophils Absolute Auto 0.39 K/mm3 (0.02-0.50); Eosinophils Percent Auto 7.4 % (1.0-6.0); Hematocrit 27.4 % (35.0-42.0); Hemoglobin 8.4 g/dL (11.7-13.8); Immature Granulocyte Absolute 0.04 K/mm3 (0.00-0.00); Immature Granulocyte Percent A 0.8 % (0.0-0.0); Lymphocytes Absolute Auto 1.16 K/mm3 (1.10-4.50); Mean Corpuscular HGB Conc 30.7 g/dL (32.0-36.0); Mean Corpuscular Volume 101.1 fL (78.0-102.0); Monocytes Absolute Auto 0.63 K/mm3 (0.10-0.90); Monocytes Percent Auto 11.9 % (2.0-11.0); Neutrophils Percent Auto 57.3 % (50.0-70.0); Platelet Count Result 317 K/mm3 (150-420); Red Blood Count 2.71 M/mm3 (4.20-5.40); Red Cell Distribution Width 16.8 % (11.6-14.4); White Blood Count 5.3 K/mm3 (4.8-10.8)
[2022-09-23 13:11] LABS: Alanine Aminotransferase 21 U/L (14-59); Albumin Level 3.8 g/dL (3.4-5.0); Alkaline Phosphatase 86 U/L (46-116); Anion Gap 6 mmol/L (8-16); Aspartate Amino Transferase 45 U/L (15-37); Bilirubin,Total 1.1 mg/dL (0.00-1.00); Blood Urea Nitrogen 18 mg/dL (7-18); Calcium 8.8 mg/dL (8.5-10.1); Carbon Dioxide 32 mmol/L (21-32); Chloride 102 mmol/L (98-108); Estimated Glomerular Filt Rate > 60; Ferritin 191 ng/mL (8-252); Glucose 70 mg/dL (70-99); Iron 76 ug/dL (50-170); Lactate Dehydrogenase 985 U/L (81-234); Osmolality Calculated 289 mOsm/kg (285-295); Percent Iron Saturation 24 % (12-57); Sodium 140 mmol/L (136-145); Total Protein 6.8 g/dL (6.4-8.2)
[2022-09-26 11:35] LABS: Fibrinogen 525 mg/dL (175-425)
[2022-09-27 04:25] LABS: Haptoglobin <8 mg/dL (43-212)
== END 2022-09-23 11:36 | disposition home or self-care (01) ==
LOC: CHSLAB 11:38
PROVIDERS: PCP Family Medicine; Visit Provider Family Medicine
DX: D50.9 Iron deficiency anemia, unspecified (principal)
CPT/HCPCS: 36415; 80053; 82728; 83010; 83540; 83550; 83615; 85025; 85384

== ENCOUNTER 2022-10-02 19:45 | Emergency (ER) | payer MEDICARE, SELFPAY ==
[2022-10-02] VITALS (19 sets, daily range): BP systolic 103–132; BP diastolic 65–98; PULSE 79–162; RESP 16–37; TEMP 36.4; O2SAT 93–98
--- NOTE | ~2022-10-02 | XR_ITS ---
EXAMINATION: XR chest 2V Exam Date/Time: 10/02/2022 20:20 CDT HISTORY: Shortness of breath Comparison: 09/17/2022. RESULT: Lines, tubes, and devices: Intact sternotomy wires and fixation plates. Thoracic fusion hardware. Lungs and pleura: Similar diffuse reticular opacities. Increasing right costophrenic angle blunting and pleural thickening. Stable mild left costophrenic angle blunting. Subsegmental bibasilar opacitie s. Cardiomediastinal silhouette: Stable. Other: No acute osseous or upper abdominal finding. IMPRESSION: Mild interstitial edema. Subsegmental bibasilar atelectasis/consolidation. Stable small left pleural effusion. Slightly increased small right pleural effusion, possibly loculated versus right inferolate ral pleural thickening. Reviewed, dictated and finalized at location K. IMPRESSION: Mild interstitial edema. Subsegmental bibasilar atelectasis/consolidation. Stab le small left pleural effusion. Slightly increased small right pleural effusion , possibly loculated versus right inferolateral pleural thickening.
--- NOTE | 2022-10-02 19:56 | ECG_ITS ---
Measurements Intervals [place] Rate: 158 P: [place]: 0 QRS: -13 QRSD: 82 T: 98 QT: 287 QTc: 466 Interpretive Statements ATRIAL FIBRILLATION WITH RAPID VENTRICULAR RESPONSE DELAYED PRECORDIAL R/S TRANSITION NONSPECIFIC ST & T-WAVE ABNORMALITY- INF/LAT LEADS BASELINE ARTIFACT- I, II, III, AVR, AVL V5 ABNORMAL ECG COMPARED TO ECG 09/17/2022 08:56:04 ATRIAL FIBRILLATION NOW PRESENT Electronically Signed On 10-02-2022 22:01:53 CDT by Tk Arnold D.O.
--- NOTE | 2022-10-02 20:14 | ED.SOB ---
HPI - SOB/Dyspnea General Chief Complaint: Shortness of Breath/Dyspnea Stated Complaint: SOB Source: patient and family Mode of arrival: ambulatory Limitations: physical limitation History of Present Illness HPI Narrative: Patient is a 2-year-old female With history of COPD who underwent mitral valve repair, pulmonary vein isolation and left atrial appendage ligation on August 17, 2022 at [facility]. Since then, patient has been experiencing shortness of breath and her hemoglobin has occasionally run low, requiring blood transfusions twice. Patient also has had cardioversion and has received Cardizem bolus in the past for her AFib with RVR which resulted in hypotension. Today, she presented to the emergency room due to worsening shortness of breath and back pain. She is scheduled for another heart surgery at [facility] in a few weeks. Her recent visit with her cardiothoracic surgeon was on September 27, 2022. per daughter at bedside, patient usually perked up after Lasix and blood transfusions in the past. she denied any chest pain, denied any recent illness or triggering factor for her symptoms. no fever, chills, cough. MD elicited complaint: shortness of breath Pertinent past history: COPD and other ( mitral valve repair, AFib) Onset (ago): day(s) Timing: constant Severity: severe Exacerbating factors: nothing Relieving factors: nothing Known history of: COPD and congestive heart failure Treatment prior to arrival: none Related Data Home Medications Medication Instructions Recorded Confirmed apixaban 5 mg tablet 5 mg PO BID 08/31/22 09/17/22 aspirin 81 mg tablet,delayed 81 mg PO DAILY 08/31/22 09/17/22 release (Adult Aspirin Regimen) furosemide 40 mg tablet 40 mg PO QAM 08/31/22 09/17/22 metoprolol succinate 25 mg 12.5 mg PO DAILY 08/31/22 09/17/22 tablet,extended release 24 hr Allergies Allergy/AdvReac Type Severity Reaction Status Date / Time No Known Allergies Allergy Verified 10/02/22 20:31 Review of Systems Constitutional: Constitutional: Reports as per HPI and Reports no additional constitutional complaints Eyes: Eyes: Reports as per HPI and Reports no additional eye complaints ENT: Reports system reviewed and no additional complaints, except as documented and Reports as per HPI Cardiovascular: Cardiovascular: Reports as per HPI and Reports no additional cardiovascular complaints Respiratory: Respiratory: Reports as per HPI and Reports no additional respiratory complaints Gastrointestinal: Gastrointestinal: Reports as per HPI and Reports no additional gastrointestinal complaints Genitourinary: Genitourinary: Reports as per HPI Musculoskeletal: Musculoskeletal: Reports no additional musculoskeletal complaints and Reports as per HPI Integumentary/Breasts: Skin/Breast: Reports system reviewed and no additional complaints, except as docu and Reports as per HPI Neurologic: Reports system reviewed and no additional complaints, except as documented and Reports as per HPI Psychiatric: Psychiatric: Reports no additional psychiatric complaints and Reports as per HPI Endocrine: Endocrine: Reports no additional endocrine complaints and Reports as per HPI Hematologic/Lymphatic: Hematologic/Lymphatic: Reports no additional hematologic/lymphatic complaints and Reports as per HPI Allergic/Immunologic: Allergic/Immunologic: Reports no additional allergic/immunologic complaints and Reports as per HPI PMFSH Past Medical History Medical History Anemia Atrial fibrillation COPD (chronic obstructive pulmonary disease) Insomnia Mitral regurgitation Surgical History Surgical History History of back surgery 1999 Hx of hysterectomy 1984 S/P mitral valve repair 08/17/[address] Velez at [facility] Social History Social History Smoking packs per day: 1
[2022-10-02] MEDS: dilTIAZem HCl INJ 25 MG/5 ML VIAL 10 MG IV PUSH (21:14)
[2022-10-02] MEDS: dilTIAZem HCl INJ 25 MG/5 ML VIAL 15 MG IV PUSH (22:50)
[2022-10-02] MEDS: FUROSEMIDE INJ 20 MG/2 ML VIAL IV PUSH (23:02)
[2022-10-03] VITALS (20 sets, daily range): BP systolic 106–125; BP diastolic 65–84; PULSE 137–143; RESP 15–28; TEMP 36.4; O2SAT 92–100
[2022-10-03 00:20] LABS: Troponin I 14.9 ng/L (0.00-60.4)
[2022-10-03 00:21] LABS: INR 1.2; Prothrombin Time 13.4 Seconds (9.64-11.0); White Blood Count 10.9 K/mm3 (4.8-10.8)
[2022-10-03 00:22] LABS: Basophils Percent Auto 0.5 % (0.0-1.0); Eosinophils Percent Auto 0.3 % (1.0-6.0); Hemoglobin 8.8 g/dL (11.7-13.8); Immature Granulocyte Percent A 1.1 % (0.0-0.0); Lymphocytes Percent Auto 11.4 % (18.0-42.0); Mean Corpuscular HGB Conc 31.4 g/dL (32.0-36.0); Mean Corpuscular Hemoglobin 31.9 pg (27.0-31.0); Mean Corpuscular Volume 101.4 fL (78.0-102.0); Mean Platelet Volume 10.1 fl (9.2-11.8); Monocytes Percent Auto 12.1 % (2.0-11.0); Neutrophils Percent Auto 74.6 % (50.0-70.0); Platelet Count Result 378 K/mm3 (150-420); Red Blood Count 2.76 M/mm3 (4.20-5.40); Red Cell Distribution Width 16.5 % (11.6-14.4)
[2022-10-03 00:23] LABS: Lactate Dehydrogenase 892 U/L (81-234)
[2022-10-03 00:23] LABS: Basophils Absolute Auto 0.05 K/mm3 (0.00-0.10); Eosinophils Absolute Auto 0.03 K/mm3 (0.02-0.50); Immature Granulocyte Absolute 0.12 K/mm3 (0.00-0.00); Lymphocytes Absolute Auto 1.24 K/mm3 (1.10-4.50); Monocytes Absolute Auto 1.32 K/mm3 (0.10-0.90); Neutrophils Absolute Auto 8.2 K/mm3 (1.7-7.2)
[2022-10-03 00:24] LABS: Alanine Aminotransferase 20 U/L (14-59); Anion Gap 10 mmol/L (8-16); Aspartate Amino Transferase 49 U/L (15-37); Bilirubin,Total 1.8 mg/dL (0.00-1.00); Blood Urea Nitrogen 29 mg/dL (7-18); Calcium 8.8 mg/dL (8.5-10.1); Carbon Dioxide 27 mmol/L (21-32); Chloride 100 mmol/L (98-108); Estimated CRCL calculation 41 ml/min; Estimated Glomerular Filt Rate > 60; Glucose 131 mg/dL (70-99); Osmolality Calculated 291 mOsm/kg (285-295); Potassium 4.5 mmol/L (3.5-5.1); Sodium 137 mmol/L (136-145); Troponin I 15.2 ng/L (0.00-60.4)
[2022-10-03 00:25] LABS: Albumin Level 3.7 g/dL (3.4-5.0); Alkaline Phosphatase 83 U/L (46-116); NT Pro B Type Natriuretic Pept 7217 pg/mL (0-125); Total Protein 6.7 g/dL (6.4-8.2)
[2022-10-03] MEDS: dilTIAZem 100 MG/100 ML 100 MG/100 ML BAG IV CONT (00:31)
[2022-10-03] MEDS: LIDOCAINE 5% PATCH 1 PATCH TRANSDERM (00:35)
[2022-10-03] MEDS: CYCLOBENZAPRINE HCL 5 MG TABLET PO (03:18)
== END 2022-10-03 04:06 | disposition short-term general hospital (02) ==
PROVIDERS: Emergency Provider Emergency Medicine; PCP Family Medicine
DX: I48.21 Permanent atrial fibrillation (principal); I50.9 Heart failure, unspecified; J44.9 Chronic obstructive pulmonary disease, unspecified; Z87.891 Personal history of nicotine dependence; Z95.2 Presence of prosthetic heart valve
CPT/HCPCS: 36415; 71046; 80053; 83615; 83880; 84484; 85025; 85610; 93005; 96365; 96375; 96376; 99285; A9270; J1940

== ENCOUNTER 2022-10-18 14:18 | Emergency (ER) | payer MEDICARE, SELFPAY ==
--- NOTE | ~2022-10-18 | XR_ITS ---
EXAMINATION: XR chest 1V portable DATE: 10/18/2022 15:03 INDICATION: Shortness of breath TECHNIQUE: frontal view of the chest was obtained. COMPARISON: Chest radiograph dated 10/02/2022 FINDINGS: Interstitial and airspace opacities in bilateral lower lung zones. Blunting at the costophrenic angle s consistent with small bilateral pleural effusions. No pneumothorax. Cardiomegaly. Median sternotomy and cardiac valve repair, likely mitral. Instrumented posterior spinal fusion with bilateral vertica l nichole and laminar hooks extending from the upper to the lower thoracic spine. 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 IMPRESSION: 1. Interstitial and airspace opacities in bilateral lower lung zones which could represent mild pulmo nary edema, atelectasis, pneumonia or some combination thereof. 2. Small bilateral pleural effusions. 3. Cardiomegaly. Reviewed, dictated and finalized at location B. IMPRESSION: 1. Interstitial and airspace opacities in bilateral lower lung zones which coul d represent mild pulmonary edema, atelectasis, pneumonia or some combination th ereof. 2. Small bilateral pleural effusions. 3. Cardiomegaly.
[2022-10-18 14:18] VITALS: BP 133/58; PULSE 75; RESP 20; TEMP 36.3; O2SAT 100
--- NOTE | 2022-10-18 14:39 | ED.GENADULT ---
HPI - General Adult General Chief complaint: Extremity Problem,Nontraumatic Stated complaint: swelling legs Time Seen by Provider: 10/18/22 14:27 History of Present Illness HPI narrative: 72-year-old female presenting with bilateral lower extremity swelling and shortness of breath. Patient states she had her mitral valve replaced x2. She states the 1st replacement was done approximately 2 months ago and that the valve was leaking and had to be replaced approximately 1 week ago. She presents today due to increased swelling to her bilateral lower extremities and associated shortness of breath. I did speak with the patient's PCP who called in to give report requesting the patient be admitted for observation/diuresing. Related Data Home Medications Medication Instructions Recorded Confirmed apixaban 5 mg tablet 5 mg PO BID 08/31/22 10/18/22 aspirin 81 mg tablet,delayed 81 mg PO DAILY 08/31/22 10/18/22 release (Adult Aspirin Regimen) metoprolol succinate 25 mg 12.5 mg PO DAILY 08/31/22 10/18/22 tablet,extended release 24 hr acetaminophen 325 mg capsule 650 mg PO Q6H PRN Pain 10/18/22 10/18/22 furosemide 40 mg tablet 40 mg PO BID 10/18/22 10/18/22 potassium chloride 20 mEq 20 meq PO BID 10/18/22 10/18/22 tablet,extended release Allergies Allergy/AdvReac Type Severity Reaction Status Date / Time No Known Allergies Allergy Verified 10/18/22 14:40 [facility] Past Medical History Medical History Anemia Atrial fibrillation COPD (chronic obstructive pulmonary disease) Insomnia Mitral regurgitation Surgical History Surgical History History of back surgery 1999 Hx of hysterectomy 1985 S/P mitral valve repair 08/17/[address] Velez at [place] Social History Social History Smoking packs per day: 1 Smoking cigarettes per day: 20.0 Years smoked: 40 Smoking pack-years: 40.00 Smoking status: Former smoker Tobacco type: cigarettes Second hand tobacco smoke exposure: No Smoking end date: 12/12/18 Alcohol intake: unknown Substance use: never Substance use type: does not use Lack of Transportation: No Lack of Food: Never True Current Housing: I Have Housing Concerned About Future Housing: No Difficulty Paying Gas/Electric Bills: No Difficulty Paying for Meds: No Currently Unemployed: No Education: Bachelor's Degree Difficulty w/ Childcare or Family Care: No Gender identity (if verbalized by the patient): Female Sexual Orientation (if Verbalized by the Patient): Straight or Heterosexual Spiritual care concerns: No Exam Const: General: healthy appearing and no acute distress HENMT: Head: normal to inspection and no contusions Ears: external ears normal Face/Nose/Sinus: Normal external nose present and Normal nares present Face and sinus: normal facial exam Mouth: Yes lip normal and Yes moist mucous membranes Eyes: Conjunctivae: conjunctivae normal EOM: EOMs intact bilaterally Neck: Neck: normal visual inspection and no meningeal signs Chest: Chest palpation & inspection: normal inspection of the chest and normal inspection of the chest Other: Surgical scars appear appropriate for age Resp: Effort & Inspection: not labored, no retractions and no use of accessory muscles Auscultation: crackles Other: mild increased work of breathing. Satting well on room air. Faint crackles in the bilateral lower lung diamond. Cardio: Rate: regular rate Rhythm: regular rhythm GI: Inspection: non-distended GI Palp: No Guarding due to palpation present (GI) Back/Spine/Pelvis: Back: No CVA tenderness Cervical Spine: No collar present Skin: General skin exam: normal color Rashes: no rashes Other: Bilateral 2+ lower extremity edema. no erythema. No increased warmth. No drainage. Neur
[2022-10-18 14:49] LABS: Hematocrit 33.1 % (35.0-42.0); Hemoglobin 9.8 g/dL (11.7-13.8); Mean Corpuscular HGB Conc 29.6 g/dL (32.0-36.0); Mean Corpuscular Hemoglobin 29.3 pg (27.0-31.0); Mean Corpuscular Volume 99.1 fL (78.0-102.0); Mean Platelet Volume 10.9 fl (9.2-11.8); Platelet Count Result 141 K/mm3 (150-420); Red Blood Count 3.34 M/mm3 (4.20-5.40); Red Cell Distribution Width 15.4 % (11.6-14.4); White Blood Count 7.1 K/mm3 (4.8-10.8)
--- NOTE | 2022-10-18 14:52 | PC.NURSE ---
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 Per ERP okay to use pcp office EKG.
[2022-10-18 15:07] LABS: Alanine Aminotransferase 13 U/L (14-59); Albumin Level 2.6 g/dL (3.4-5.0); Alkaline Phosphatase 72 U/L (46-116); Anion Gap 5 mmol/L (8-16); Aspartate Amino Transferase 40 U/L (15-37); Bilirubin,Total 0.4 mg/dL (0.00-1.00); Blood Urea Nitrogen 14 mg/dL (7-18); Calcium 8.3 mg/dL (8.5-10.1); Carbon Dioxide 32 mmol/L (21-32); Chloride 101 mmol/L (98-108); Estimated CRCL calculation 55 ml/min; Estimated Glomerular Filt Rate > 60; Glucose 84 mg/dL (70-99); Osmolality Calculated 285 mOsm/kg (285-295); Potassium 5.3 mmol/L (3.5-5.1); Sodium 138 mmol/L (136-145); Total Protein 6.5 g/dL (6.4-8.2)
[2022-10-18 15:10] LABS: Troponin I 787.5 ng/L (0.00-60.4)
[2022-10-18 15:12] LABS: Band Neutrophils Percent 1 % (0-6); Basophils Percent Manual 0 % (0-1); Eosinophils Absolute Manual 0.56 K/mm3 (0.02-0.5); Eosinophils Percent Manual 8 % (1-6); Lymphocytes Absolute Manual 0.99 K/mm3 (1.1-4.5); Lymphocytes Percent Manual 14 % (18-44); Monocytes Absolute Manual 0.35 K/mm3 (0.1-0.90); Monocytes Percent Manual 5 % (3-9); Neutrophils Absolute Manual 5.18 K/mm3 (1.7-7.2); Neutrophils Percent Manual 72 % (46-73); Platelet Estimate Adequate (Adequate); Total Cells Counted 100
--- NOTE | 2022-10-18 15:14 | PC.NURSE ---
EKG received from pt PCP office and ERP reviewed. time of EKG 1321. order cancelled for hospital EKG per ERP okay.
[2022-10-18 15:21] LABS: NT Pro B Type Natriuretic Pept 3118 pg/mL (0-125)
--- NOTE | 2022-10-18 15:33 | PC.NURSE ---
ERP at patient bedside to speak with patient and her daughter regarding need for transfer to [facility] where patient had heart surgery. RN on phone with [facility] transfer line.
--- NOTE | 2022-10-18 15:40 | PC.NURSE ---
RN unable to get through on [facility] access line, now attempting to phone patient wire photo operator office directly.
--- NOTE | 2022-10-18 15:46 | PC.NURSE ---
RN phoned number provided by Emily at cardiology office. [phone]. Spoke with Isa who states she will speak with the provider now talking with Dr. Castro.
[2022-10-18 15:56] VITALS: BP 110/84; PULSE 78; RESP 22; TEMP 36.2; O2SAT 97
[2022-10-18] MEDS: FUROSEMIDE INJ 40 MG/4 ML VIAL IV PUSH (15:57)
--- NOTE | 2022-10-18 16:02 | PC.NURSE ---
Dr. Castro now speaking with patient and her daughter regarding plan after speaking with her cardiothoracic surgeon. Bernice administered by EFREN.
[2022-10-18 16:26] VITALS: BP 119/64; PULSE 76
--- NOTE | 2022-10-18 16:41 | PC.NURSE ---
patient urinated prior to exiting dept.
== END 2022-10-18 16:37 | disposition left against medical advice (07) ==
PROVIDERS: Emergency Provider Emergency Medicine; PCP Family Medicine
DX: I50.9 Heart failure, unspecified (principal); J44.9 Chronic obstructive pulmonary disease, unspecified; I48.91 Unspecified atrial fibrillation; Z87.891 Personal history of nicotine dependence; Z79.01 Long term (current) use of anticoagulants; Z79.82 Long term (current) use of aspirin; Z79.899 Other long term (current) drug therapy; Z95.2 Presence of prosthetic heart valve
CPT/HCPCS: 36415; 71045; 80053; 83880; 84484; 85025; 96374; 99284; J1940

== ENCOUNTER 2022-10-21 08:33 | Outpatient (RCR) | payer MEDICARE, SELFPAY ==
[2022-10-19] MEDS: FUROSEMIDE INJ 40 MG/4 ML VIAL IV PUSH (13:30)
[2022-10-19] MEDS: HEPARIN SODIUM LOCK FLUSH 500 UNITS/5 ML SYRINGE IV PUSH (13:35)
--- NOTE | 2022-10-19 13:35 | PC.NURSE ---
Patient here for IVP lasix. Patient to have lasix IV Q24hr x3. Patient tolerated IV start and IVP med well. IV site left in place due to being a difficult IV stick. Site wrapped in coban and education given about care of site. Patient states understanding. Left via wheelchair with daughter.
[2022-10-20] MEDS: FUROSEMIDE INJ 40 MG/4 ML VIAL IV PUSH (08:05)
[2022-10-20] MEDS: HEPARIN SODIUM LOCK FLUSH 500 UNITS/5 ML SYRINGE IV PUSH (08:05)
--- NOTE | 2022-10-20 08:10 | PC.NURSE ---
Patient here for IVP lasix. IV site flushed well. Patient tolerated medication well. IV site left in place, patient coming tomorrow morning for last dose of lasix. Patient denies any questions. Left floor ambulatory.
[2022-10-21] MEDS: FUROSEMIDE INJ 40 MG/4 ML VIAL IV PUSH (08:41)
--- NOTE | 2022-10-21 08:50 | PC.NURSE ---
IVP Lasix given, saline lock removed, tolerated well, site clear, ambulatory upon discharge to home
== END 2023-01-17 23:59 | disposition home or self-care (01) ==
LOC: CHSTREATRM 08:33
PROVIDERS: PCP Family Medicine; Visit Provider Family Medicine
DX: I50.9 Heart failure, unspecified (principal)
CPT/HCPCS: 96374; J1940

== ENCOUNTER 2023-02-24 09:56 | Outpatient (CLI) | payer MEDICARE, SELFPAY ==
--- NOTE | ~2023-02-24 | XR_ITS ---
Clinical Indication: Shortness of breath PA and lateral views of the chest: Comparison: 10/18/2022 Findings: There is patchy airspace consolidation, worst at the right lower lobe.. Cardiomediastinal silhouette is within normal limits. Stable extensive thoracic spinal fixation hardware. Stable enchon droma of the proximal left humerus. Impression: Patchy bilateral airspace consolidation, worst in the right lower lobe, most compatible multifocal bi lateral pneumonia. Stable osseous findings, as above. Reviewed, dictated and finalized at location . GER BACKGROUND Impression: Patchy bilateral airspace consolidation, worst in the right lower lobe, most co mpatible multifocal bilateral pneumonia. Stable osseous findings, as above.
== END 2023-02-24 09:57 | disposition home or self-care (01) ==
PROVIDERS: PCP Nurse Practitioner Family; Visit Provider Nurse Practitioner Family
DX: R06.02 Shortness of breath (principal); R91.8 Other nonspecific abnormal finding of lung field
CPT/HCPCS: 71046

== ENCOUNTER 2023-04-22 11:00 | Outpatient (RCR) | payer MEDICARE, SELFPAY | END 2023-04-28 23:59 | disposition home or self-care (01) | PROVIDERS: PCP Family Medicine | DX: Z95.2 Presence of prosthetic heart valve (principal) | CPT/HCPCS: 93798 ==

== ENCOUNTER 2023-05-13 11:00 | Outpatient (RCR) | payer MEDICARE, SELFPAY | END 2023-05-13 14:25 | disposition home or self-care (01) | PROVIDERS: PCP Family Medicine | DX: Z95.2 Presence of prosthetic heart valve (principal) | CPT/HCPCS: 93798 ==

== ENCOUNTER 2023-05-18 08:35 | Outpatient (CLI) | payer MEDICARE, SELFPAY ==
--- NOTE | ~2023-05-18 | CT_ITS ---
CT Scan of the Chest without Contrast: Clinical Indication: Shortness of breath Technique: Contiguous sections were acquired throughout the chest without intravenous contrast. Dose reduction technique was used on this scan by utilizing automated exposure control and iterative recon struction technique. The dose-length product (DLP) was 110.47 mGy-cm. COMPARISON: 09/03/2022 Findings: There is no evidence of any significant mediastinal, hilar or axillary lymphadenopathy. The mediastin al soft tissues appear normal. Cardiomegaly noted, probable prior valve replacements. There is no evidence of pleural or pericardial effusion. There is mild biapical scarring. There is mild peripheral interstitial thickening at the lung bases q uestionable minimal scattered peripheral areas of tree-in-bud opacity. Images through the upper abdomen reveal no abnormalities. There is kyphosis of T7 compression fractur e and thoracic spinal fixation hardware. Impression: Mild peripheral/basilar chronic interstitial disease and/or small airways infectious process. Kyphosis with T7 compression fracture and thoracic spinal fixation hardware. Reviewed, dictated and finalized at location . ROOM PERSONNEL Impression: Mild peripheral/basilar chronic interstitial disease and/or small airways infec tious process. Kyphosis with T7 compression fracture and thoracic spinal fixation hardware.
== END 2023-05-18 08:36 | disposition home or self-care (01) ==
LOC: CHSIMG 08:37
PROVIDERS: PCP Nurse Practitioner Family; Visit Provider Internal Medicine Pulmonary Disease
DX: R06.02 Shortness of breath (principal); R91.8 Other nonspecific abnormal finding of lung field; M40.294 Other kyphosis, thoracic region; Z98.1 Arthrodesis status
CPT/HCPCS: 71250

== ENCOUNTER 2023-06-07 08:55 | Outpatient (CLI) | payer MEDICARE, SELFPAY ==
[2023-06-07 09:03] VITALS: PULSE 83; O2SAT 98
[2023-06-07 09:05] VITALS: O2SAT 86
[2023-06-07 09:10] VITALS: PULSE 90; O2SAT 88
[2023-06-07 09:12] VITALS: PULSE 90; O2SAT 91
--- NOTE | 2023-06-07 10:04 | HOMEO2EVAL ---
Evaluation was performed at [facility] [place] Home Oxygen Evaluation RC: Home Oxygen (O2) Evaluation Start: 06/07/23 09:29 Freq: Status: Active Protocol: RPE Activity Type Activity Date Activity User E-sign Co-sign Detail Recorded Client Recorded Date Recorded By Document 06/07/23 09:03 KRM [id number] 06/07/23 10:03 KRM Document 06/07/23 09:05 KRM [id number] 06/07/23 10:03 KRM Document 06/07/23 09:10 KRM [id number] 06/07/23 10:03 KRM Document 06/07/23 09:12 KRM [id number] 06/07/23 10:03 KRM 06/07/23 06/07/23 06/07/23 09:03 09:05 09:10 Home O2 Evaluation [Oxygen] -Test Phase Resting Exercise Exercise -Oxygen Delivery Room Air Room Air Nasal Cannula -Oxygen Flow Rate (L/min) 1 [Pulse Oximetry] -Pulse Oximetry (90-100 %) 98 86 L 88 L [Pulse Rate] -Pulse Rate (60-100 beats/min) 83 90 [Evaluation] -Activity Tolerance Good [Exercise] -Ambulation Distance (feet) -Ambulation Distance (meters) [Comments] -Home Oxygen Evaluation Comments [Charges] -Evaluation Charges 06/07/23 09:12 Home O2 Evaluation [Oxygen] -Test Phase Exercise -Oxygen Delivery Nasal Cannula -Oxygen Flow Rate (L/min) 2 [Pulse Oximetry] -Pulse Oximetry (90-100 %) 91 [Pulse Rate] -Pulse Rate (60-100 beats/min) 90 [Evaluation] -Activity Tolerance Good [Exercise] -Ambulation Distance (feet) 300 -Ambulation Distance (meters) 91.43 [Comments] -Home Oxygen Evaluation Comments pt. requires 2lpm o2 with activity. pt. request POC. [Charges] -Evaluation Charges O2 Evaluation Charge
--- NOTE | 2023-06-16 11:56 | WPDPFTINT ---
PFT Procedure Performed PFT Procedure Performed Spirometry with Pre/Post Bronchodilator Plethysmography (Lung Vol) Diffusing Cap (DLCO) Flow Vol Loop PFT Interpretation DOS: 06/07/2023 REQUESTING: Olayinka Schuster MD REASON FOR TESTING: COPD PULMONARY FUNCTION TESTS As of June 10, 2022, the [employer] reference equations are used in interpretation of spirometry, lung volumes and diffusing capacity. Race and ethnicity are not included as variables in the interpretation strategy. Spirometry: The pre-bronchodilator FEV1 is 0.74 L, 38% predicted, extremely low. The pre-bronchodilator FVC is 1.36 L, 56% predicted, severely decreased. The FEV1/FVC ratio is 55%, decreased, consistent with airflow obstruction. After bronchodilator, the FEV1 is 0.78 L, 41% predicted, 6% increase. The FVC is 1.37 L, 1% increase, no change. The FEV1/FVC ratio is after bronchodilator is 57%, decreased, consistent with airflow obstruction. Lung volumes: The total lung capacity is 3.81 L, 87% predicted, normal. The residual volume is 2.45 L, 136% predicted, consistent with mild hyperinflation. The RV/TLC is 64%, hyperinflation. Airway resistance is 257% predicted, increased. Diffusion: DLCO is 9.1, 60% mildly decreased. The DLCO/VA is 4.09, 119%, normal. Flow volume loop: The flow volume loop shows coving of the expiratory limb consistent with airflow obstruction. IMPRESSION: This study shows extremely severe obstructive ventilatory impairment without response to bronchodilator, air trapping and mild diffusion impairment which improves with consideration of alveolar volume. Lack of response to bronchodilator should not preclude use if clinically indicated. Compared to a study 11/10/2016 FEV1 has decreased more than expected, previously was 1.01 L, 51% predicted and the FVC was 1.87 L, 76% predicted, same FEV1/FVC ratio,54%. There was a response to bronchodilator, a 12% increase in the FEV1 however this was only 130 mL. Total lung capacity at that time was 135% and residual volume was 231%., both are lower now. Diffusion capacity was 66%, similar. Florecita Shukla MD
== END 2023-06-07 08:56 | disposition home or self-care (01) ==
LOC: CHSCARD 08:57
PROVIDERS: PCP Family Medicine; Visit Provider Internal Medicine Pulmonary Disease
DX: R06.02 Shortness of breath (principal); J44.9 Chronic obstructive pulmonary disease, unspecified
CPT/HCPCS: 94060; 94618; 94726; 94729

== ENCOUNTER 2024-03-05 10:21 | Outpatient (CLI) | payer MEDICARE, SELFPAY ==
--- NOTE | ~2024-03-05 | XR_ITS ---
XR chest 2V Ordering provider: Catalino Wray MD History: 73 years Female with . cough, SOB X few days, COPD/Former smoker, heart surg X1 yr . Comparison: February 24, 2023 FINDINGS: MEDIASTINUM: The cardiac silhouette is slightly enlarged. Postoperative changes in the mediastinum. LUNGS: No effusions or pneumothorax. Slight loss of silhouette of the left cardiac border is noted wh ich may indicate adjacent atelectasis versus pneumonia. Underlying emphysematous changes. OTHER: No free air under the diaphragm. Postoperative changes in the spine. Severe kyphosis. IMPRESSION: Possible atelectasis versus pneumonia in the lingula. 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
[2024-03-05 10:40] LABS: Hematocrit 40.7 % (35.0-42.0); Mean Corpuscular HGB Conc 34.4 g/dL (32-36); Mean Corpuscular Hemoglobin 30.8 pg (27.0-31.0); Mean Corpuscular Volume 89.5 fL (78.0-102.0); Mean Platelet Volume 9.3 fl (9.2-11.8); Platelet Count Result 244 K/mm3 (150-420); Red Blood Count 4.55 M/mm3 (4.20-5.40); Red Cell Distribution Width 13.1 % (11.6-14.4); White Blood Count 5.5 K/mm3 (4.8-10.8)
[2024-03-05 11:07] LABS: Band Neutrophils Percent 2 % (0-6); Lymphocytes Absolute Manual 1.76 K/mm3 (1.1-4.5); Lymphocytes Percent Manual 32 % (18-44); Monocytes Absolute Manual 0.66 K/mm3 (0.1-0.90); Monocytes Percent Manual 12 % (3-9); Neutrophils Absolute Manual 3.08 K/mm3 (1.7-7.2); Neutrophils Percent Manual 54 % (46-73); Platelet Estimate Adequate (Adequate); Total Cells Counted 100
[2024-03-05 11:15] LABS: Anion Gap 12 mmol/L (4-12); Blood Urea Nitrogen 16 mg/dL (7-18); CRP 3.2 mg/dL (0.0-0.9); Calcium 9.1 mg/dL (8.5-10.1); Carbon Dioxide 33 mmol/L (21-32); Chloride 99 mmol/L (98-108); Estimated Glomerular Filt Rate > 60; Glucose 100 mg/dL (70-99); NT Pro B Type Natriuretic Pept 1888 pg/mL (0-125); Osmolality Calculated 299 mOsm/kg (285-295); Sodium 144 mmol/L (136-145)
[2024-03-05 11:39] LABS: Erythrocyte Sedimentation Rate 27 mm/hr (0-20)
== END 2024-03-05 10:22 | disposition home or self-care (01) ==
LOC: CHSLAB 10:23
PROVIDERS: PCP Nurse Practitioner Family; Visit Provider Orthopaedic Surgery
DX: I50.9 Heart failure, unspecified (principal); R91.8 Other nonspecific abnormal finding of lung field
CPT/HCPCS: 36415; 71046; 80048; 83880; 85025; 85652; 86140

== ENCOUNTER 2024-05-21 09:51 | Outpatient (CLI) | payer MEDICARE, SELFPAY ==
--- NOTE | ~2024-05-21 | CT_ITS ---
CT Scan of the Chest without Contrast: Clinical Indication: Lung cancer screening, nicotine dependence Technique: Contiguous sections were acquired throughout the chest without intravenous contrast. Dose reduction technique was used on this scan by utilizing automated exposure control and iterative recon struction technique. The dose-length product (DLP) was 55.88 mGy-cm. COMPARISON: 05/18/2023 Findings: There is no evidence of any significant mediastinal, hilar or axillary lymphadenopathy. The mediastin al soft tissues appear normal. There is no evidence of pleural or pericardial effusion. Stable biapical scarring. There is chronic bronchiectatic change in the right middle lobe and lingula , and minimal in the right lung base. There is associated peripheral tree-in-bud opacities in these r egions as well. Images through the upper abdomen reveal no abnormalities. 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 Impression: Lung RADS 2: Benign appearance. 12 follow-up screening CT advised. Acute on chronic small airways infection involving the right middle lobe, lingula, and right lower lo be. Reviewed, dictated and finalized at [facility]. Impression: Lung RADS 2: Benign appearance. 12 follow-up screening CT advised. Acute on chronic small airways infection involving the right middle lobe, lingu la, and right lower lobe.
--- OUTSIDE RECORDS SUMMARY | 2024-05-21 11:20 | XMS_ITS | Clinical Summary ---
Author Organization [facility] Address On license of [facility] [place] [address] Care Team Providers Care Seed Corn Manager Production Name Role Phone Rafa Young DO Primary Care Provider Roya Velez MD Unavailable [phone] Miscellaneous, Not In File Unavailable Unava ilable Allergies No known active allergies Medications Trelegy Ellipta 100-62.5-25 mcg inhaler Inhale 1 puff every morning 05/21/19 23 Active acetaminophen (TYLENOL) 325 mg tablet Take 2 tablets (650 mg total) by mouth every 4 (four) hours as needed for pain 30 tablet 08/28/19 23 Active Additional Information Patient not taking.Reported on 07/06/2023 aspirin 81 mg enteric coated tablet Take 1 tablet (81 mg total) by mouth daily 30 tablet 11 08/29/19 23 Active traZODone (DESYREL) 100 mg tablet Take 1 tablet (100 mg total) by mouth 08/13/19 23 Active senna (SENOKOT) 8.6 mg tabletIndicatio ns:constipation Take 1 tablet by mouth 2 (two) times a day as needed for constipation 10/15/19 23 Active Additional Information Patient not taking.Reported on 12/01/2022 HYDROmorphone (DILAUDID) 2 mg tablet 10/16/19 23 Active metOLazone (ZAROXOLYN) 2.5 mg tablet Take 1 tablet (2.5 mg total) by mouth 2 (two) times a day 20 tablet 10/26/19 Active Additional Information Patient not taking.Reported on 07/06/2023 apixaban (ELIQUIS) 5 mg tabletIndicatio ns:atrial fibrillation Take 1 tablet (5 mg total) by mouth every 12 (twelve) hours 60 tablet 11/11/19 Active furosemide (LASIX) 40 mg tablet Take 1 tablet (40 mg total) by mouth 2 (two) times a day 60 tablet 6 07/06/19 24 Active potassium chloride ER (KLOR-CON) 20 mEq CR tablet Take one tablet daily 30 tablet 6 07/06/19 24 Active metoprolol XL (TOPROL-XL) 25 mg extended release tablet TAKE HALF A TABLET BY MOUTH DAILY 15 tablet 8 05/11/19 25 Active metoprolol XL (TOPROL-XL) 25 mg extended release tablet TAKE HALF A TABLET BY MOUTH DAILY 15 tablet 8 08/17/19 24 2024 Discontinued Active Problems Problem Noted Date Diagnosed Date Anemia 10/04/2022 Assessment & Plan (10/13/2022 8:51 AM CDT): POA Continue to monitor CBC daily H&H stable Assessment & Plan (10/12/2022 2:03 PM CDT): POA Continue to monitor CBC daily H&H stable Assessment & Plan (10/11/2022 12:37 PM CDT): POA Continue to monitor CBC daily H&H stable (HFpEF) heart failure with preserved ejection fr action 10/03/2022 Assessment & Plan (10/13/2022 8:51 AM CDT): Monitor intake and output Daily weights Strict I/O Assessment & Plan (10/12/2022 2:03 PM CDT): Monitor intake and output Daily weights Strict I/O Assessment & Plan (10/11/2022 12:38 PM CDT): Monitor intake and output Daily weights Strict I/O S/P mitral valve repair 09/03/2022 Assessment & Plan (10/13/2022 8:50 AM CDT): S/P MVR PT/OT Aggressive Pulmonary Toilet Chest tubes are out +wires (discuss removal plan) Continue beta evelia and titrate as tolerated Aspirin, add lasix Assessment & Plan (10/12/2022 2:01 PM CDT): S/P MVR PT/OT Aggressive Pulmonary Toilet Chest tubes are out +wires Continue beta evelia and titrate as tolerated Aspirin, add lasix Assessment & Plan (10/11/2022 12:34 PM CDT): S/P MVR PT/OT Aggressive Pulmonary Toilet Chest tubes are out +wires DC epi gtt today, consider beta blockade later tonight Aspirin, add lasix Assessment & Plan (09/03/2022 5:03 PM CDT): S/p mitral valve repair using 32 mm James ring annuloplasty and the edge repair of A2/P2 cleft closure between P1/P2, pulmonary vein isolation using radiofrequency ablation, left atrial appendage ligation on 08/17 (discharged to home 08/27) -post-op TTE 08/23: Irregular rhythm during study: Dilated LV with estimated LVEF 65%. Normal RV function. S/p MV repair: mod eccentric MR, mean 7mmHg. Mild-mod TR. Estimated PASP 37mmHg+RA pressure. IVC is not visualized. -continue aspirin -continue metoprolol xl -reviewed admit labs -reviewed admit ECG SVT (supraventricular tachycardia) 09/03/2022 Assessment & Plan (09/03/2022 5:05 PM CDT): Know history of afib prior to surgery, had tachy-linda syndrome post-op. 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 Presented to OSH yesterday evening (09/02) in SVT s/p DCCV x 2 to afib w/RVR started on cardizem with hypotension and given NS bolus. -EP saw previously and she was restarted on Metoprolol successfully and they signed off -see pAF above Assessment & Plan (08/26/2022 2:12 PM CDT): Telemetry VVI backup at 40 Bpm Develops episodes of AF with RVR (rate 130-150s) with compensatory pauses with bradycardia Occasional V paced Holding BB SR today Obtain 12 lead Will dc PW today Pain 08/22/2022 Assessment & Plan (10/13/2022 8:51 AM CDT): Monitor pain Q4 hours and adjust pain medications as needed for pain control Continue Dilaudid 2mg [id number] PRN Continue Tylenol 1000mg Q6 hours Add lidocaine patches Assessment & Plan (10/12/2022 2:03 PM CDT): Monitor pain Q4 hours and adjust pain medications as needed for pain control Continue Dilaudid 2mg [id number] PRN Continue Tylenol 1000mg Q6 hours Add lidocaine patches Assessment & Plan (10/11/2022 12:39 PM CDT): Monitor pain Q4 hours and adjust pain medications as needed for pain control Continue Dilaudid 2mg [id number] PRN Continue Tylenol 1000mg Q6 hours Add lidocaine patches Assessment & Plan (08/23/2022 12:11 PM CDT): Expected postop pain following cardiac surgery. Well controlled on Pat APAP, Lidoderm patches and PRN Oxy. - D/c Oxy, not used >24 hrs - Keep scheduled APAP and Lidoderm patches Assessment & Plan (08/22/2022 9:47 AM CDT): Expected postop pain following cardiac surgery. Well controlled on Pat APAP, Lidoderm patches and PRN Oxy. - D/c Oxy, not used >24 hrs - Keep scheduled APAP and Lidoderm patches Acute blood loss anemia 08/22/2022 Assessment & Plan (09/03/2022 4:59 PM CDT): Expected in this early post-op setting -on Eliquis and aspirin -admit HH today was 6.7/20.9 down from discharge HH of 9.1/29.1 -transfuse 1u PRBC -guaiac stools -discuss with Dr. Velez, no plan for imaging as no concern for bleeding Assessment & Plan (08/25/2022 1:20 PM CDT): Expected following cardiac surgery. Hgb 8.0. No signs of active bleeding. Hemodynamically stable. - No acute indication for transfusion - CBC daily Assessment & Plan (08/22/2022 9:55 AM CDT): Expected following cardiac surgery. Hgb 7.7 from 7.6. No signes of active bleeding. Hemodynamically stable. - No acute indication for transfusion - CBC daily Multifocal pneumonia 08/15/2022 Assessment & Plan (08/16/2022 6:22 PM CDT): Pt admitted for hypoxic respiratory failure on 08/05, suspected due to afib with rvr and associated flash pulm edema, discharged with new o2 requirement. Continued to be hypoxic, CXR initially with concern for R side predominant multifocial pneumonia + R>L b/l pleural effusions. No infectious symptoms. No sick contacts. Started on vanc/cefe in ED given recent hospitalization. Pt does have hx of COPD, but no prior hospitalizations or exacerbations. On CT TAVR, does show evidence of some bronchiectasis, however would suspect patient is low risk for pseudomonas. -discussed with CTS and it was felt that pneumonia was less likely and that symptoms/imaging consistent with volume overload. .- Vanc/cefe stopped and patient placed on azithromycin for possible copd exacerbation. - MRSA swab neg - RVP +parainfluenza Paroxysmal atrial fibrillation 08/15/2022 Overview (08/15/2022): First occurrence of afib on 08/05, presented SOB found to be in afib with rvr. Given dilt and converted to sinus. Started on apixaban. Currently in sinus rhythm. Assessment & Plan (10/13/2022 8:51 AM CDT): S/p MVrep, pulmonary vein isolation using radiofrequency ablation, and MEENA ligation 6/6 Known history of afib prior to MVr, had tachy-linda syndrome post-op Was on Eliquis at home WILLIAM/DCCV 10/05 successful Continue telemetry Assessment & Plan (10/12/2022 2:02 PM CDT): S/p MVrep, pulmonary vein isolation using radiofrequency ablation, and MEENA ligation 6/6 Known history of afib prior to MVr, had tachy-linda syndrome post-op Was on Eliquis at home WILLIAM/DCCV 10/05 successful Continue telemetry Assessment & Plan (10/11/2022 12:35 PM CDT): S/p MVrep, pulmonary vein isolation using radiofrequency ablation, and MEENA ligation 6/6 Known history of afib prior to MVr, had tachy-linda syndrome post-op Was on Eliquis at home, now on Hep gtt WILLIAM/DCCV 10/05 successful Continue telemetry Assessment & Plan (09/03/2022 5:11 PM CDT): Know history of afib prior to surgery, had tachy-linda syndrome post-op. Presented to OSH yesterday evening (09/02) in SVT s/p DCCV x 2 to afib w/RVR started on cardizem with hypotension and given NS bolus -s/p pulmonary vein isolation using radiofrequency ablation, left atrial appendage ligation on 08/17 (discharged to home 08/27) -converted to NSR prior to transfer by patient report -ECG on admit: NSR rate of 82, Diana 146, QRS 70, Qtc 455 -EP saw previously and she was restarted on Metoprolol successfully and they signed off -continue Eliquis -telemetry -continue home metoprolol XL 12.5 -CXR Assessment & Plan (08/26/2022 2:11 PM CDT): EP following VVI 40, paced several times overnight Holding Metoprolol per EP team; remains NSR Will dc PW today Dr Velez does not want heparin gtt at this time Assessment & Plan (08/22/2022 9:40 AM CDT): EP following Called this AM because was in and out of AFIB all night-they suggested starting Metoprolol 25mg BID EP wants to know our anticoagulation plans- waiting to hear from Dr. Velez Consider Heparin gtt Assessment & Plan (08/15/2022 2:50 AM CDT): - apixaban held for CTS, no need to bridge - consider dilt vs metop if rvr reoccurs, pt held prescribed dilt outpatient due to soft BPs (110s/70s) COPD (chronic obstructive pulmonary disease) 06/2022 Overview (08/15/2022): No PFTs on file. No hx of exacerbation. No wheezing on exam. - Continue trelegy. Assessment & Plan (10/13/2022 8:51 AM CDT): Continue home Trelegy Ellipta PRN duo nebs Wearing oxygen on occasion Assessment & Plan (10/12/2022 2:03 PM CDT): Continue home Trelegy Ellipta PRN duo nebs Wearing oxygen on occasion Assessment & Plan (10/07/2022 12:41 PM CDT): Continue home Trelegy Ellipta PRN duo nebs Wearing oxygen on occasion Assessment & Plan (09/03/2022 5:03 PM CDT): Continue home medications -on RA Assessment & Plan (08/23/2022 12:11 PM CDT): Room Air. CXR: bilateral atelectasis and effusions, CVC in SVC. - Pulmonary hygiene with IS, acapella, and C&DB - Wean supplemental O2 for SpO2 > 92% - home inhaler for copd - FBG -500 mL to -1 L Assessment & Plan (08/22/2022 9:51 AM CDT): Room Air. CXR: bilateral atelectasis and effusions, CVC in SVC. - Pulmonary hygiene with IS, acapella, and C&DB - Wean supplemental O2 for SpO2 > 92% - home inhaler for copd - FBG -500 mL to -1 L Assessment & Plan (08/15/2022 2:55 PM CDT): Consider possible exacerbation. -azithromycin started. Hypoxia 08/15/2022 Overview (08/15/2022): Hypoxia with new oxygen requirement. Interestingly this developed in setting of afib with rvr and likely subsequent flash pulmonary edema s/p diuresis at OSH without improvement in oxygen requirement. Trigger for this initial afib with rvr and likely flash pulm edema is unclear; given that the patient now has evidence of a multifocal pneumonia it is likely that infection was the underlying cause, unclear if patient scanned for PE at any point however seems unlikely patient would have developed both conditions so acutely, so will defer CT PE protocol at this time. It's also possible that this was all due to her underlying valvular disease. Overall, will treat for pneumonia. Patient appears mildly volume up on exam, with elevated JVD and crackles. Assessment & Plan (08/25/2022 1:02 PM CDT): Aggressive Pulmonary Toilet Currently on room air Assessment & Plan (08/22/2022 9:43 AM CDT): Aggressive Pulmonary Toilet Assessment & Plan (08/15/2022 2:51 PM CDT): Patient appears mildly volume up on exam, with elevated JVD and crackles. Possibly COPD exacerbation contributing. Less likely pneumonia given lack of symptoms consistent with Pneumonia, normal wbc, and patient is afebrile. - NT-proBNP 800s - tele - Strict I/O's, daily weights, 2g Na restriction - IV lasix 40 mg BID -asa and aldactone per CTS Bone lesion 08/15/2022 Overview (08/15/2022): On CXR, bone lesion in humerus, unclear etiology or chronicity. 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 Continue OP monitoring. Abnormal urine 08/15/2022 Assessment & Plan (08/15/2022 2:57 PM CDT): UA with possible signs of infection. Patient asymptomatic currently but was on abx for UTI noted on 08/12. -ceftriaxone started for possible UTI. Mitral valve prolapse 08/03/2022 Overview (08/15/2022): Serially followed with echoes for years, was planning on surgery with cardiothoracic team for 08/17. Last echo 07/16/2022: Mildly dilated LV with normal systolic function. Extensive posterior MAC and myxematous MV disease with severe prolapse of the posterior leaflet with partially flail component of P2 scallop which is causing anteriorly directed jet of severe MR (EROA=0.4 cm2, RVol=70 cc/beat). LA is markedly dilated. Grade III diastolic LV dysfunction, characterized by very elevated mean LA pressure. Mild TR w/ estimated PA systolic pressure 65 mmHg. Dilated inferior vena cava. Assessment & Plan (08/26/2022 2:10 PM CDT): 08/17: S/p MV repair. Intra-op WILLIAM with mild MR, normal biventricular function on Epi 0.04. 08/20: TTE S/P MV repair (Carmita procedure?). Markedly calcified mitral annulus. There is an eccentric residual MR probably moderate with elevated diastolic gradient across the valve (mean 7.4 mmHg). Normal LV. LVEF 66%. LA is markedly dilated. Normal RV. - MAP >70 - Epicardial wires 40 VVI backup, remains NSR will dc PW today -continue BB -Irregular rhythm during study: Dilated LV with estimated LVEF 65%. Normal RV function. S/p MV repair: mod eccentric MR, mean 7mmHg. Mild-mod TR. Estimated PASP 37mmHg+RA pressure. IVC is not visualized -continue diuresis as tolerated - Add TEDs - PT/OT Assessment & Plan (08/22/2022 9:43 AM CDT): 08/17: S/p MV repair. Intra-op WILLIAM with mild MR, normal biventricular function on Epi 0.04. 08/20: TTE S/P MV repair (Carmita procedure?). Markedly calcified mitral annulus. There is an eccentric residual MR probably moderate with elevated diastolic gradient across the valve (mean 7.4 mmHg). Normal LV. LVEF 66%. LA is markedly dilated. Normal RV. Currently unsupported this morning. - MAP >70 - Epicardial wires 40 VVI backup Assessment & Plan (08/16/2022 6:20 PM CDT): - CTS consulted. Appreciate recommendations! 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 NPO at midnight -lasix 40 mg IV BID -asa 81 -aldactone 25 mg daily -hold eliquis -daily labs Resolved Problems Problem Noted Date Diagnosed Date Resolved Date Afib 10/03/2022 10/03/2022 Atrial fibrillation 09/03/2022 09/04/19 Surgical History Surgery Date Site/Laterality Comments MITRAL VALVE REPAIR OTHER SURGICAL HISTORY -s/p pulmonary vein isolation using radiofrequency ablation, left atrial appendage ligation on 08/17 Medical History Medical History Date Comments COPD (chronic obstructive pu lmonary disease) (HCC) MR (mitral regurgitation) Tachycardia-bradycardia syndrome (HCC) tachy-linda during post-op course from MV repair Atrial fibrillation (HCC) s/p -s /p pulmonary vein isolation using radiofrequency ablation, left atrial appendage ligation on 08/17 Family History Medical History Relation Name Comments No Known Problems Father Hypertension Mother Stroke Mother Anesthesia problems Neg Hx Relation Name Status Comments Father Mother Social History Tobacco Use Types Packs/Day Years Used Date Smoking Tobacco: Former Cigarettes 2014 Smokeless Tobacco: Never Social Connection and Isolat ion Panel [NHANES] Answer Date Recorded In a typical week, how many times do you talk on the phone with family, friends, or neighbors? More than three times a week 10/07/2022 How often do you get togethe r with friends or relatives? Three times a week 10/07/2022 How often do you attend chur ch or adventist services? Never 10/07/2022 Do you belong to any clubs o r organizations such as restorationism groups, unions, fraternal or athletic groups, or school groups? No 10/07/2022 How often do you attend meet ings of the clubs or organizations you belong to? Never 10/07/2022 Are you , , di vorced, , never , or living with a partner? 10/07/2022 AUDIT-C Answer Date Recorded Q1: How often do you have a drink containing alc ohol? 2-3 times a week 08/12/2022 Q2: How many drinks containi ng alcohol do you have on a typical day when you are drinking? 1 or 2 08/12/2022 Q3: How often do you have si x or more drinks on one occasion? Never 08/12/2022 Overall Financial Resource Strain (CARDIA) Answe r Date Recorded How hard is it for you to pa y for the very basics like food, housing, medical care, and heating? Not hard at all 10/07/2022 PHQ-2 Answer Date Recorded PHQ-2 Total Score 0 10/07/2022 Hunger Vital Sign Answer Date Recorded Within the past 12 months, y ou worried that your food would run out before you got the money to buy more. Never true 10/08/19 23 Within the past 12 months, t he food you bought just didn't last and you didn't have money to get more. Never true 10/07/2022 PRAPARE - Transportation Answer Date Re corded In the past 12 months, has l ack of transportation kept you from medical appointments or from getting medications? No 09/12 In the past 12 months, has l ack of transportation kept you from meetings, work, or from getting things needed for daily living? No 10/07/2022 Housing Stability Vital Sign Answer Dereck e Recorded In the last 12 months, was t here a time when you were not able to pay the mortgage or rent on time? No 10/07/2022 In the last 12 months, how many places have you lived? 1 10/07/2022 In the last 12 months, was t here a time when you did not have a steady place to sleep or slept in a correction (including now)? No 10/07/2022 Personal Safety Answer Date Recorded Have you ever been in or are you currently in a harmful physical or emotional relationship or is someone making you feel afraid or unsafe? 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 Gender Identity Not on file Sexual Orientation Not on file Obstetrics History Last Filed Vital Signs Vital Sign Reading Time Taken Comments Blood Pressure 152/90 07/06/2023 3:22 PM CDT Pulse 76 07/06/2023 3:22 PM CDT Temperature 36.9 C (98.4 F) 11/08/2022 10:06 AM CDT Respiratory Rate 16 10/14/2022 7:25 AM CDT Oxygen Saturation 97% 07/06/2023 3:22 PM CDT Inhaled Oxygen Concentration - - Weight 54 kg (119 lb) 07/06/2023 3:22 PM CDT Height 160 cm (5' 3 ) 07/06/2023 3:22 PM CDT Body Mass Index 21.08 07/06/2023 3:22 PM CDT Plan of Treatment Health Maintenance Due Date Last Done Comments Colon Cancer Screening-Colonoscopy 1950 Hepatitis C Screening 1950 Osteoporosis Screening-Bone Density Scan 1950 DTaP/Tdap/Td Vaccine (1 - Tdap) 1960 Hepatitis B Screening 1967 Pneumococcal vaccine 65+ (1 of 2 - PCV) 1968 Zoster Vaccine (1 of 2) 1999 Well Visit 65+ 2014 Depression Screening 10/04/2023 10/03/2022 Fall Risk Assessment 10/15/2023 10/14/2022 Covid-19 Vaccine (3 - season) 2023, 03/20/2021 Influenza Vaccine (#1) 2023 Medical Devices Implanted Type Area Banking Specialist Device Identifier Shelf Expiration Date Model / Serial / Lot [employer] James[employer]Erick ds 32mm 39.6mm 31.9mm 70.4mm Flexible Band Template [id number] - [id number] - [id number] Implanted:Qty: 1 on 08/17/2022 by Roya Velez MD at [facility] Prosthetic Valve N/A: Heart [employer] 01/06/2027 [id number] / [id number] / [employer] Screw Bone Slf Drl Full Thread Locking 3.5x14mm Ti 100.035.14 - [id number] Implanted:Qty: 14 on 08/17/2022 by Roya Velez MD at [facility] N/A: Sternum [employer] 100.035. 14 / / [employer] Screw Bone Slf Drl Full Thread Locking 3.5x12mm Ti 100.035.12 - [id number] Implanted:Qty: 4 on 08/17/2022 by Roya Velez MD at [facility] N/A: Sternum [employer] 100.035. 12 / / [employer] Plate Bone Low Profile 6 Hole H Shape Ti 115.102.06 - [id number] Implanted:Qty: 2 on 08/17/2022 by Roya Velez MD at [facility] N/A: Sternum [employer] 115.102. 06 / / [employer] Plate Bone Low Profile 6 Hole O Shape Ti 115.104.06 - [id number] Implanted:Qty: 1 on 08/17/2022 by Roya Velez MD at [facility] N/A: Sternum [employer] 115.104. 06 / / [employer] Screw Bone Slf Drl Full Thread Locking 3.5x12mm Ti 100.035.12 - [id number] Implanted:Qty: 6 on 10/08/2022 by Dianna Roque MD at [facility] N/A: Sternum [employer] 100.035. 12 / / [employer] Screw Bone Slf Drl Full Thread Locking 3.5x14mm Ti 100.035.14 - [id number] Implanted:Qty: 10 on 10/08/2022 by Dianna Roque MD at [facility] N/A: Sternum [employer] 100.035. 14 / / [employer] Screw Bone Slf Drl Full Thread Locking 3.5x16mm Ti 100.035.16 - [id number] Implanted:Qty: 6 on 10/08/2022 by Dianna Roque MD at [facility] N/A: Sternum [employer] 100.035. 16 / / [employer] Plate Bone Low Profile 4 Hole Straight Ti 115.401.04 - [id number] Implanted:Qty: 1 on 10/08/2022 by Dianna Roque MD at [facility] N/A: Sternum [employer] 115.401. 04 / / [employer] Valve Mitral Tissue Stented Epic Plus 31mm [id number] - [id number] - [id number] Implanted:Qty: 1 on 10/08/2022 by Roya Velez MD at [facility] N/A: Heart [employer] [id number] 10/11/2025 [id number] / [id number] / [employer] Tri-Ad 2 Santo 28mm Tricuspid Valve Band Annuloplasty Model 900sfc [id number] - [id number] - [id number] Implanted:Qty: 1 on 10/08/2022 by Roya Velez MD at [facility] N/A: Heart [employer] [id number] 10/30/2025 [id number] / [id number] / [employer] Plate Bone Low Profile 6 Hole H Shape Ti 115.102.06 - [id number] Implanted:Qty: 1 on 10/08/2022 by Dianna Roque MD at [facility] N/A: Sternum [employer] 115.102. 06 / / [employer] Plate Bone Low Profile 6 Hole O Shape Ti 115.104.06 - [id number] Implanted:Qty: 2 on 10/08/2022 by Dianna Roque MD at [facility] N/A: Sternum [employer] 115.104. 06 / / Insurance MEDICARE [employer] [place] [address] Advance Directives For more information, please contact: [phone] * Full Code (Latest Code Status on File) Date Activated Date Inactivated Comments 10/03/2022 5:14 AM 10/14/2022 5:15 PM * Full Code Date Activated Date Inactivated Comments 09/03/2022 7:07 AM 09/04/2022 5:43 PM * Full Code Date Activated Date Inactivated Comments 08/15/2022 4:08 AM 08/27/2022 6:35 PM Care Teams Seed Corn Manager Production Relationship Specialty Start Date End Date Rafa Young DO [address] [place] [address] PCP - General Family Medicine 08/15/22 Roya Velez MD [id number] [place] [address] Cardiothoracic Surgery 08/27/22 Miscellaneous, Not In File 10/14/22
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
== END 2024-05-21 09:52 | disposition home or self-care (01) ==
PROVIDERS: PCP Nurse Practitioner Family; Visit Provider Nurse Practitioner Family
DX: Z12.2 Encounter for screening for malignant neoplasm of respiratory organs (principal); J98.4 Other disorders of lung; Z87.891 Personal history of nicotine dependence
CPT/HCPCS: 71271

== ENCOUNTER 2025-01-29 13:53 | Outpatient (CLI) | payer MEDICARE, SELFPAY ==
--- NOTE | ~2025-01-29 | MM_ITS ---
EXAMINATION: MM screening ramón BI w [email or web address] HISTORY: Screening TECHNIQUE: Craniocaudal and mediolateral oblique 3-D tomosynthesis images were obtained and synthetic 2-D images were generated. CAD analysis was submitted and interpreted. COMPARISON: 01/09/2021 BREAST PARENCHYMAL COMPOSITION: Dense: The breasts are heterogeneously dense, which may obscure small masses FINDINGS: There is no evidence of suspicious mass, calcification, or architectural distortion to suggest malignancy in either breast. There has been no suspicious interval change. IMPRESSION: 1. No mammographic evidence of malignancy. 2. Recommend routine screening mammography in one year. BI-RADS Category 1: Negative Reviewed, dictated and finalized at location [facility]. 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
== END 2025-01-29 13:54 | disposition home or self-care (01) ==
PROVIDERS: PCP Nurse Practitioner Family; Visit Provider Family Medicine
DX: Z12.31 Encounter for screening mammogram for malignant neoplasm of breast (principal)
CPT/HCPCS: 77063; 77067